=== PATIENT | male | born 1955 | race Caucasian/White ===

== ENCOUNTER 2017-07-23 11:04 | Emergency (ER) | payer MEDICARE, MEDICAID | END 2017-07-23 14:43 | disposition home or self-care (01) | LOC: ERS 11:04 | DX: Z43.6 Encounter for attention to other artificial openings of urinary tract (principal); I10 Essential (primary) hypertension; D64.9 Anemia, unspecified; Z79.899 Other long term (current) drug therapy; Z79.4 Long term (current) use of insulin | CPT/HCPCS: 99284 ==

== ENCOUNTER 2017-07-31 11:33 | Outpatient (CLI) | payer MEDICARE, OTHER ==
--- NOTE | 2017-08-03 12:29 | RAD ---
MODIFIED BARIUM SWALLOW WITH SPEECH THERAPIST: HISTORY: A 62-year-old male with dysphagia with feeding difficulty. FINDINGS: The patient was evaluated in the upright and lateral positions with multiple consistencies. There was severe oral dysphagia with a delayed swallowing reflex. Considerable tongue pumping with f ree spilling of the bolus of all textures into the pharynx with crystal aspiration with numerous consis tencies. Please see speech therapy report for additional findings and recommendations. POS: [facility]
== END 2017-07-31 11:34 | disposition home or self-care (01) ==
PROVIDERS: ATTEND Family Medicine
DX: R13.10 Dysphagia, unspecified (principal); R63.3 Feeding difficulties
CPT/HCPCS: 74230

== ENCOUNTER 2017-08-31 09:49 | Inpatient (IN) | payer MEDICARE, MEDICAID ==
[2017-08-31] MEDS ORDERED: Acetaminophen 1,000 MG in Premix Bag 1 BAG IVPB ONE (10:15)
[2017-08-31] MEDS ORDERED: Piperacillin/Tazobactam 4.5 GM in Sodium Chloride 0.9% 100 ML IVPB ONE (10:15)
[2017-08-31 10:24] LABS: Bilirubin Negative (Negative); Blood, Urine Moderate (Negative); Clarity TURBID (Clear); Glucose, Urine (Dipstick) Negative (Negative); Leukocyte Large (Negative); Nitrite Negative (Negative); Protein, Urine (Dipstick) 300 mg/dL (Neg-Trace); Specific Gravity, Urine 1.023 (1.002-1.036); pH, Urine 8.5 (5.0-9.0)
[2017-08-31 10:28] LABS: Bacteria/HPF 4+ HPF (None Seen)
[2017-08-31 10:30] LABS: Pathc Cast-AUWi Flag 6.39 (0-2.49); Yeast-AUWi Flag 107.7 (0-25.0)
[2017-08-31 10:40] LABS: Hemoglobin 12.3 g/dL (14.0-18.0); Mean Corpuscular HGB CONC 32.5 g/dL (32.0-36.0); Mean Corpuscular Hemoglobin 31.6 pg (27.0-31.0); Mean Corpuscular Volume 97.3 fl (80.0-94.0); Mean Platelet Volume 12.3 fL (7.4-10.4); Platelet Count 103 thou/uL (130-400); RBC Distribution Width 12.6 % (11.5-14.5); Red Blood Cell (RBC) Count 3.91 mill/uL (4.70-6.10); White Blood Cell (WBC) Count 7.7 thou/uL (4.8-10.8)
[2017-08-31 10:47] LABS: Crystals/HPF 3+ TRIPLE PHOS HPF (Negative); Yeast-All Forms None Seen HPF (None Seen)
[2017-08-31 10:48] LABS: Hyaline Casts/LPF NONE SEEN LPF (0-3 Hyaline); Other Casts/LPF None Seen LPF (0-3 Hyaline)
[2017-08-31 10:49] LABS: ALT (SGPT) 19 U/L (8-55); AST (SGOT) 19 U/L (5-34); Albumin 2.8 g/dL (3.4-4.8); Alkaline Phosphatase 93 U/L (40-150); Anion Gap 13 mmol/L (10-20); BUN (Urea Nitrogen) 35 mg/dL (8.4-25.7); Bilirubin, Total 0.3 mg/dL (0.2-1.2); Calc. Creatinine Clearance 0 mL/min (70-130); Calcium 8.6 mg/dL (7.8-10.44); Carbon Dioxide 23 mmol/L (23-31); Chloride 103 mmol/L (98-107); Estimated GFR-MDRD 83; Globulin 3.7 g/dL (2.4-3.5); Glucose 201 mg/dL (80-115); Potassium 4.9 mmol/L (3.5-5.1); Protein, Total 6.5 g/dL (5.8-8.1); Sodium 134 mmol/L (136-145)
--- NOTE | 2017-08-31 11:08 | RAD ---
PORTABLE CHEST 1 VIEW: DATE: 08/31/17. TIME: 10:11 a.m. HISTORY: Sepsis, fever, leaking of the PEG tube, leaking of green fluid from site of nephrostomy. FINDINGS/IMPRESSION: The heart is enlarged. There is bilateral perihilar edema versus infiltrates. No pneumothoraces or large effusions are seen. POS: C
[2017-08-31 11:27] LABS: Lymphocytes 17 % (21-51); MDiff Complete? YES; Monocytes 17 % (0-10); Neutrophil 64 % (42-75); PLT Morphology Comment Appears Decreased; Polychromasia SLIGHT = 2-3 cells (100X) (0-2/hpf); Reactive Lymphocytes 1 % (0-10)
[2017-08-31] MEDS: Sodium Chloride 0.9% 1,000 ML IV SCH (15:00)
[2017-08-31] MEDS ORDERED: Fleet Enema 133 ML BOT PR PRN (15:10)
[2017-08-31] MEDS ORDERED: Chloraseptic Spray 180 ml Bottle PO PRN (15:10)
[2017-08-31] MEDS ORDERED: Artificial Tears 18 DROP/0.9 ML EA EYE PRN (15:10)
[2017-08-31] MEDS ORDERED: Bisacodyl 10 MG SUPP PR PRN (15:10)
[2017-08-31] MEDS ORDERED: Mag-Al 1200 mg/1200 mg/30 ML UDCUP PER TUBE PRN (15:10)
[2017-08-31] MEDS ORDERED: HumaLOG 300 UNITS/3 ML VIAL SC PRN (15:10)
[2017-08-31] MEDS ORDERED: Dextrose 5% in Water 1,000 ML IV PRN (15:10)
[2017-08-31] MEDS ORDERED: Sodium Chloride 0.65% Nasal 44 ML BOT EA NARE PRN (15:10)
[2017-08-31] MEDS ORDERED: Eucerin (Mineral Oil/Petrolatum,White) 30 gm Jar TOP PRN (15:10)
[2017-08-31] MEDS ORDERED: Diabetic Tussin 200 MG/10 ML UDCUP PER TUBE PRN (15:10)
[2017-08-31] MEDS ORDERED: VANCOMYCIN PO PRN (15:10)
[2017-08-31] MEDS ORDERED: hydrALAZINE 20 MG/ML VIAL SLOW IVP PRN (15:10)
[2017-08-31] MEDS ORDERED: Acetaminophen 650 MG/20.3 ML UDCUP PER TUBE PRN (15:10)
[2017-08-31] MEDS ORDERED: Ondansetron HCl/PF 4 MG/2 ML Vial IVP PRN (15:10)
[2017-08-31] MEDS ORDERED: Dextrose 50% Abboject 50 ML SYRINGE SLOW IVP PRN (15:10)
[2017-08-31] MEDS ORDERED: Acetaminophen 650 MG Suppository PR PRN (15:10)
[2017-08-31] MEDS ORDERED: Ondansetron ODT 4 MG TAB PER TUBE PRN (15:10)
--- NOTE | 2017-08-31 15:50 | HP ---
PRIMARY CARE PHYSICIAN: Dr. Cheryl Navas. REASON FOR ADMISSION: Sent from [facility] in [place] for fever. HISTORY OF PRESENT ILLNESS: A 62-year-old male, who lives at [facility]. He has a PEG tube and chronic indwelling Huffman catheter. Over there at [facility], his fever was 102.7 and there was problem with his PEG tube with leaking surrounding PEG tube as well as his urine was draining cloudy urine and that is why they sent him to emergency room for evaluation. This patient is nonverbal. He has a previous history of stroke and he has hemiplegia and contracture. He has PEG tube in place and he has Huffman catheter in place. He is not able to provide any history, so history is very limited. As per [facility] report, they gave him medication this morning, but they found rate around PEG tube site and he was appeared more tachypneic and weak than usual and that is why they sent him to the ER today. When he presented to the ER, he was tachypneic, but he was afebrile. He was having profuse diaphoreses. The routine blood test in the emergency room showed thrombocytopenia with urinalysis suggestive of urinary tract infection and chest x-ray also suspected for bilateral perihilar infiltration. REVIEW OF SYSTEMS: All review of systems tried to review with the patient, but unable to review at this point because patient is not able to provide any history or not participating with the history and he cannot communicate well. 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 PAST SURGICAL HISTORY: History of suprapubic catheter placement and then removed. Currently, patient has Huffman catheter and PEG tube placement. PAST PSYCHIATRIC HISTORY: Major depressive disorder. SOCIAL HISTORY: Patient lives at [facility]. No history of tobacco, alcohol or illicit drug abuse. Patient's sister, Anais, is the medical power of state's attorney. FAMILY HISTORY: No strong family history of premature coronary artery disease, stroke or cancer. EMERGENCY ROOM COURSE: Patient has received Ofirmev 1 gram, vancomycin 1 gram, Zosyn 4.5 gram, and IV fluid. ALLERGIES: TETRACYCLINE. CURRENT HOME MEDICATIONS: Apidra subcu as per sliding scale, Coreg 3.125 mg per tube twice daily, Lantus subcu daily, oxcarbazepine 150 mg per tube twice daily, Protonix 40 mg per tube daily, and potassium chloride 30 mL per tube daily. PHYSICAL EXAMINATION: VITAL SIGNS: Currently, blood pressure 127/55, pulse 73, respiratory rate 32, temperature 98.6, saturation 96% on 4 liter oxygen. Weight 72.5 kilograms. GENERAL: The patient is currently sick, chronically ill, febrile, and tachypneic. HEENT: Head is normocephalic, atraumatic. Eyes: Pupils round, reactive to light. Extraocular muscles intact. ENT: Oropharynx within normal limits. No oral thrush noted. No pharyngeal erythema, no exudate. NECK: Supple, no JVD, no thyromegaly, no carotid bruit. LUNGS: Bilateral coarse breath sounds, but no obvious rales or rhonchi heard. CARDIAC: S1 and S2 regular without any significant murmur elicited. ABDOMEN: PEG tube in place. The patient does have surrounding erythema and maceration around PEG tube site, but I could not elicit any drainage at this point. The patient does have old healed suprapubic catheter incision. GENITALIA: The patient does have a Huffman catheter in place, draining cloudy urine. BACK: No CVA tenderness. EXTREMITIES: Upper extremity passive movement of all joints are normal with contracture on the left side. Lower extremity passive movement is unremarkable , but patient does have contracture on the left side. NEUROLOGIC: Unable to do a complete neurological examination. Patient is not cooperative. Patient has aphasia, dysphagia, and residual weakness and contracture from previous stroke. SKIN: Patient does have petechiae as well as bruits on his lower extremity as well as upper extremity. HEMATOLOGICAL: No lymph nodes. PSYCHIATRIC: Flat affect. SIGNIFICANT LABORATORY DATA: 1. Chest x-ray based on my review, bilateral perihilar edema versus infiltrate. 2. Urinalysis suggestive of urinary tract infection. BMP: Sodium 134, potassium 4.9, chloride 103, carbon dioxide 23, anion gap 13, BUN 35, creatinine 0.92, glucose 201, calcium 8.6, lactic acid 1.1. 3. LFT: AST 19, ALT 19, alkaline phosphatase 93, albumin 2.8. CBC: WBC 7.7, hemoglobin 12.3, platelet 103, and MCV 97.3. 4. EKG and scrap burner showing sinus rhythm. ASSESSMENT AND PLAN: 1. Sepsis with acute organ dysfunction. This patient has sepsis and source of infection is urinary tract infection as well as pneumonia. He is hypoxic and tachypneic. He has hypoxic respiratory failure. He is clinically appeared dehydrated. At this point, the patient will be closely monitored on the telemetry floor. We will continue with slow IV fluid and continue with broad spectrum antibiotic therapy with vancomycin and Zosyn. We will follow up on blood and urine culture result. His influenza screen is negative. 2. Bilateral hilar pneumonia. This patient is tachypneic, most likely related with his pneumonia. We will continue with vancomycin and Zosyn. He is at aspiration risk, so we will treat as aspiration pneumonia as well as healthcare associated pneumonia given the patient lives in [place] and his pneumonia is associated with hypoxia. 3. Urinary tract infection related with chronic indwelling Huffman catheter. We will continue with broad spectrum antibiotic with vancomycin and Zosyn and we will follow up on culture result. 4. Macrocytosis with anemia. We will continue with folic acid, vitamin B12 via PEG tube daily. 5. Thrombocytopenia. We will monitor platelet count. We are starting DVT prophylaxis, but if platelet count drops then we will discontinue heparin product. 6. Dehydration. Patient will be given gentle IV fluid NS at 75 mL per hour. 7. PEG tube malfunction. As per [facility], PEG tube was draining, we will closely monitor, we are going to start tube feeding and if it starts draining any material, then we will hold tube feeding and consult GI for PEG tube adjustment. At this point, patient will need PEG tube site care with antifungal cream and topical cream. 8. Diabetes type 2. We will continue with insulin as per sliding scale per protocol and we will resume Levemir based on his Accu-Cheks. 9. Hypertension. At this point, the patient's blood pressure is reasonably marginal, so we will closely monitor on telemetry floor. If blood pressure goes high, then we will resume a Coreg. 10. Gastroesophageal reflux disease. We will continue Pepcid 20 mg IV b.i.d. and Protonix per tube daily. 11. Anxiety and depression. We will continue venlafaxine, which he is taking at [facility]. 12. Seizure disorder. Patient is taking oxcarbazepine, which we will continue for seizure while in the hospital. 13. Deep venous thrombosis prophylaxis. Lovenox 40 mg subcutaneously daily. 14. Gastrointestinal prophylaxis. Pepcid 20 mg IV b.i.d. 15. Code status. I spoke with the patient's medical power of state's attorney, Bennie Clifton on phone [phone] and she confirmed a full code status and she also gave me permission to talk to Carson, his brother, who lives near [facility]. Disposition plan based on clinical course. We are expecting patient's stay in hospital more than 2 midnights, and plan of care discussed with the patient and his sister on the phone. TATIANNA
[2017-08-31] MEDS: Piperacillin/Tazobactam 4.5 GM in Sodium Chloride 0.9% 100 ML IVPB SCH (18:08)
[2017-08-31] MEDS: HumaLOG 300 UNITS/3 ML VIAL SC PRN (18:08)
[2017-08-31 18:52] LABS: Legionella Urinary Ag Negative (Negative); Strep pneumo Urine Ag NEGATIVE (NEGATIVE)
[2017-08-31 20:27] VITALS: BMI 22.9
[2017-08-31] MEDS: Famotidine/PF 20 mg/2ml Vial SLOW IVP SCH (22:27)
[2017-08-31] MEDS: Insulin Detemir 100 UNITS/ML 10 UNITS in Pre-Filled Syringe 1 EACH SC SCH (22:28)
[2017-08-31] MEDS: OXcarbazepine 150 MG TAB PER TUBE SCH (22:28)
[2017-08-31] MEDS: Vancomycin HCl 1 GM in Premix Bag 1 BAG IVPB SCH (22:28)
[2017-09-01] MEDS: Piperacillin/Tazobactam 4.5 GM in Sodium Chloride 0.9% 100 ML IVPB SCH ×4 (00:15→19:31)
[2017-09-01 05:29] LABS: ALT (SGPT) 19 U/L (8-55); AST (SGOT) 16 U/L (5-34); Albumin 2.5 g/dL (3.4-4.8); Alkaline Phosphatase 89 U/L (40-150); Anion Gap 12 mmol/L (10-20); BUN (Urea Nitrogen) 32 mg/dL (8.4-25.7); Bilirubin, Total 0.3 mg/dL (0.2-1.2); Calc. Creatinine Clearance 88 mL/min (70-130); Calcium 8.5 mg/dL (7.8-10.44); Carbon Dioxide 21 mmol/L (23-31); Chloride 107 mmol/L (98-107); Estimated GFR-MDRD 87; Globulin 3.6 g/dL (2.4-3.5); Glucose 323 mg/dL (80-115); Potassium 4.9 mmol/L (3.5-5.1); Protein, Total 6.1 g/dL (5.8-8.1); Sodium 135 mmol/L (136-145)
[2017-09-01] MEDS: Sodium Chloride 0.9% 1,000 ML IV SCH ×2 (06:24→22:05)
[2017-09-01 06:45] LABS: Band 3 % (5-11); Hemoglobin 12.3 g/dL (14.0-18.0); Hypochromia SLIGHT = 6-15 cells (100X) (0-5/hpf); Lymphocytes 11 % (21-51); MDiff Complete? YES; Macrocytosis SLIGHT = 6-15 cells (100X) (0-5/hpf); Mean Corpuscular HGB CONC 31.6 g/dL (32.0-36.0); Mean Corpuscular Hemoglobin 31.2 pg (27.0-31.0); Mean Corpuscular Volume 98.8 fl (80.0-94.0); Mean Platelet Volume 12.8 fL (7.4-10.4); Monocytes 2 % (0-10); Neutrophil 84 % (42-75); PLT Morphology Comment Appears Decreased; Platelet Count 94 thou/uL (130-400); RBC Distribution Width 12.7 % (11.5-14.5); Red Blood Cell (RBC) Count 3.96 mill/uL (4.70-6.10); White Blood Cell (WBC) Count 4.5 thou/uL (4.8-10.8)
[2017-09-01] MEDS ORDERED: Enoxaparin Sodium 40 MG/0.4 ML SYRINGE SC SCH (09:00)
[2017-09-01] MEDS: Insulin Detemir 100 UNITS/ML 10 UNITS in Pre-Filled Syringe 1 EACH SC SCH ×2 (09:30→22:05)
[2017-09-01] MEDS: Famotidine/PF 20 mg/2ml Vial SLOW IVP SCH ×2 (09:30→22:04)
[2017-09-01] MEDS: Folic Acid 1 MG TAB PER TUBE SCH (09:30)
[2017-09-01] MEDS: Cyanocobalamin (Vitamin B-12) 1,000 MCG TAB PER TUBE SCH (09:30)
[2017-09-01] MEDS: OXcarbazepine 150 MG TAB PER TUBE SCH ×2 (09:31→22:06)
[2017-09-01] MEDS: Pantoprazole 40 MG GRANULES PACKET PER TUBE SCH (09:31)
[2017-09-01] MEDS: Vancomycin HCl 1 GM in Premix Bag 1 BAG IVPB SCH ×2 (09:47→22:05)
[2017-09-01] MEDS ORDERED: Nystatin Powder 15 GM BOT TOP PRN (10:24)
--- NOTE | 2017-09-01 11:36 | PDOC.PN ---
- Subjective Encounter Start Date: 09/01/17 Encounter Start Time: 08:00 -: non-verbal, old records requested/rev Patient seen and examined. No overnight events - Objective Resuscitation Status: Resuscitation Status FULL:Full Resuscitation MAR Reviewed: Yes Vital Signs & Weight: Vital Signs (12 hours) Temp Pulse Resp BP Pulse Ox 09/01/17 08:05 98.5 F 78 22 H 180/70 H 98 09/01/17 07:12 97 09/01/17 07:11 79 16 97 09/01/17 04:30 99 09/01/17 04:02 95 09/01/17 04:00 98.7 F 67 16 159/70 H 99 09/01/17 00:15 98 09/01/17 00:00 97.8 F 74 18 132/64 98 08/31/17 23:57 69 22 H 97 Weight Admit Weight 159 lb 13.362 oz Weight 159 lb 13.362 oz I&O: 08/31/17 09/01/17 09/02/17 06:59 06:59 06:59 Intake Total 1861 Output Total 1300 Balance 561 Result Diagrams: 09/01/17 04:42 09/01/17 04:42 Additional Labs: Accuchecks 09/01/17 08/31/17 08/31/17 06:10 20:24 17:26 POC Glucose 280 H 225 H 207 H 08/31/17 15:29 POC Glucose 192 H EKG Reviewed by me: Yes (nsr) Phys Exam - Physical Examination Constitutional: NAD HEENT: PERRLA, moist MMs, sclera anicteric Neck: no JVD, supple, full ROM Respiratory: no wheezing, no rales, no rhonchi Cardiovascular: RRR, no significant murmur, no rub Gastrointestinal: soft, no distention, positive bowel sounds PEG tube+ Musculoskeletal: no edema, pulses present residual weakness, contracture, aphasia Lymphatic: no nodes Psychiatric: normal affect Skin: no rash, normal turgor Dx/Plan (1) Dehydration Code(s): E86.0 - DEHYDRATION Status: Acute (2) Healthcare associated bacterial pneumonia Code(s): J15.9 - UNSPECIFIED BACTERIAL PNEUMONIA Status: Acute (3) PEG tube malfunction Code(s): K94.23 - GASTROSTOMY MALFUNCTION Status: Acute (4) Sepsis with acute organ dysfunction Code(s): A41.9 - SEPSIS, UNSPECIFIED ORGANISM; R65.20 - SEVERE SEPSIS WITHOUT SEPTIC SHOCK Status: Acute (5) Thrombocytopenia Code(s): D69.6 - THROMBOCYTOPENIA, UNSPECIFIED Status: Acute (6) UTI (urinary tract infection) due to urinary indwelling catheter Code(s): T83.511A - I/I REACT D/T INDWELLING URETHRAL CATHETER, INIT; N39.0 - URINARY TRACT INFECTION, SITE NOT SPECIFIED Status: Acute (7) Anxiety and depression Code(s): F41.8 - OTHER SPECIFIED ANXIETY DISORDERS Status: Chronic (8) Diabetes type 2, controlled Code(s): E11.9 - TYPE 2 DIABETES MELLITUS WITHOUT COMPLICATIONS Status: Chronic (9) GERD (gastroesophageal reflux disease) Code(s): K21.9 - GASTRO-ESOPHAGEAL REFLUX DISEASE WITHOUT ESOPHAGITIS Status: Chronic (10) H/O: CVA (cerebrovascular accident) Code(s): Z86.73 - PRSNL HX OF TIA (TIA), AND CEREB INFRC W/O RESID DEFICITS Status: Chronic (11) Hypertension Code(s): I10 - ESSENTIAL (PRIMARY) HYPERTENSION Status: Chronic (12) Macrocytic anemia Code(s): D53.9 - NUTRITIONAL ANEMIA, UNSPECIFIED Status: Chronic (13) Seizure disorder Code(s): G40.909 - EPILEPSY, UNSP, NOT INTRACTABLE, WITHOUT STATUS EPILEPTICUS Status: Chronic - Plan cont current plan of care, continue antibiotics * continue vancomycin and zosyn * continue tube feeding * wound care * supportive care * medication reviewed as below * symptomatic treatment * medically stable with current treatment * DC tele * transfer to medical * follow culture. * DC heparin for low platelet * palliative care consult Review of Systems - Review of Systems Other: unable to review as pt is non verbal - Medications/Allergies Allergies/Adverse Reactions: Allergies Allergy/AdvReac Type Severity Reaction Status Date / Time tetracycline Allergy Verified 08/31/17 10:12 Medications: Current Medications Acetaminophen (Tylenol) 650 mg [place] Q4H PRN PRN Reason: Headache/Fever or Pain Acetaminophen (Tylenol Elixir) 650 mg PER TUBE Q4H PRN PRN Reason: Headache/Fever or Mild Pain Al Hydroxide/Mg Hydroxide (Maalox) 15 ml PER TUBE Q4H PRN PRN Reason: Heartburn or Indigestion Albuterol/Ipratropium (Duoneb) 3 ml NEB [id number] [facility] Last Admin: 09/01/17 07:11 Dose: 3 ml Albuterol/Ipratropium (Duoneb) 3 ml NEB [id number] PRN PRN Reason: SOB &/or Wheezing Artificial Tears (Tears Naturale) 0 drop EA EYE PRN PRN PRN Reason: Dry Eyes Bisacodyl (Dulcolax) 10 mg MS Q24H PRN PRN Reason: Constipation Cyanocobalamin (Vitamin B-12) 1,000 mcg PER TUBE DAILY [facility] Last Admin: 09/01/17 09:30 Dose: 1,000 mcg Dextrose/Water (Dextrose 50%) 25 gm SLOW IVP PRN PRN PRN Reason: Hypoglycemia Famotidine (Pepcid) 20 mg SLOW IVP Q12HR [facility] Last Admin: 09/01/17 09:30 Dose: 20 mg Folic Acid (Folvite) 1 mg PER TUBE DAILY [facility] Last Admin: 09/01/17 09:30 Dose: 1 mg Glucagon (Glucagon) 1 mg IM PRN PRN PRN Reason: Hypoglycemia Guaifenesin (Robitussin Sf) 200 mg PER TUBE Q4H PRN PRN Reason: Cough Hydralazine HCl (Apresoline) 10 mg SLOW IVP Q4H PRN PRN Reason: Systolic BP > 180 Piperacillin Sod/Tazobactam (Sod 4.5 gm/ Sodium Chloride) 100 mls @ 200 mls/hr IVPB Q6HR [facility] Last Admin: 09/01/17 06:23 Dose: 100 mls Dextrose/Water (D5w) 1,000 mls @ 0 mls/hr IV .Q0M PRN; As Directed PRN Reason: Hypoglycemia Sodium Chloride (Normal Saline 0.9%) 1,000 mls @ 70 mls/hr IV .[id number] [facility] Last Admin: 09/01/17 06:24 Dose: 1,000 mls Insulin Detemir 10 units/ (Miscellaneous Medication) 0.1 mls @ 0 mls/hr SC HS [facility] Last Admin: 08/31/17 22:28 Dose: 0.1 mls Insulin Detemir 10 units/ (Miscellaneous Medication) 0.1 mls @ 0 mls/hr SC QAM [facility] Last Admin: 09/01/17 09:30 Dose: 0.1 mls Vancomycin HCl 1 gm/ Device 200 mls @ 200 mls/hr IVPB 1000,2200 [facility] Last Admin: 09/01/17 09:47 Dose: 200 mls Insulin Human Lispro (Humalog) 0 units SC .MODERATE SLIDING SC PRN PRN Reason: Moderate Correctional Scale Last Admin: 08/31/17 18:08 Dose: 4 units Insulin Human Lispro (Humalog) 0 units SC .BEDTIME SLIDING SC PRN PRN Reason: Bedtime Correctional Scale Methylprednisolone Sodium Succinate (Solu-Medrol) 20 mg IVP Q8H [facility] Last Admin: 09/01/17 09:30 Dose: 20 mg Mineral Oil/White Petrolatum (Eucerin Cream) 0 gm TOP BIDPRN PRN PRN Reason: Dry Skin Miscellaneous Medication (Pharmacy To Dose) 1 each PO PRN PRN PRN Reason: Pharmacy to dose Nystatin (Mycostatin Powder) 1 gm TOP BIDPRN PRN PRN Reason: Topical Irritations Ondansetron HCl (Zofran) 4 mg IVP Q6H PRN PRN Reason: Nausea/Vomiting Ondansetron HCl (Zofran Odt) 4 mg PER TUBE Q6H PRN PRN Reason: Nausea/Vomiting Oxcarbazepine (Trileptal) 150 mg PER TUBE BID [facility] Last Admin: 09/01/17 09:31 Dose: 150 mg Pantoprazole Sodium (Protonix) 40 mg PER TUBE DAILY [facility] Last Admin: 09/01/17 09:31 Dose: 40 mg Phenol (Chloraseptic [place] 180 Ml Bot) 0 ml PO PRN PRN PRN Reason: Sore Throat Sodium Chloride ([place] Nasal [place] 0.65%) 0 ml EA NARE QIDPRN PRN PRN Reason: Nasal Congestion
[2017-09-01] MEDS: HumaLOG 300 UNITS/3 ML VIAL SC PRN ×2 (12:03→18:14)
[2017-09-01 22:14] LABS: Vancomycin, Trough 18.6 ug/mL
[2017-09-02] MEDS: Piperacillin/Tazobactam 4.5 GM in Sodium Chloride 0.9% 100 ML IVPB SCH ×4 (00:57→18:10)
[2017-09-02 05:51] LABS: #Lymphocytes 0.4 thou/uL (1.20-3.40); #Monocytes 0.5 thou/uL (0.11-0.59); #Neutrophils 6.4 thou/uL (1.40-6.50); %Eosinophils 0.1 % (0.0-10.0); %Lymphocytes 5.8 % (21.0-51.0); %Monocytes 6.7 % (0.0-10.0); %Neutrophils 87.4 % (42.0-75.0); Hemoglobin 11.6 g/dL (14.0-18.0); Mean Corpuscular HGB CONC 32.2 g/dL (32.0-36.0); Mean Corpuscular Hemoglobin 31.7 pg (27.0-31.0); Mean Corpuscular Volume 98.4 fl (80.0-94.0); Mean Platelet Volume 12.3 fL (7.4-10.4); Platelet Count 113 thou/uL (130-400); RBC Distribution Width 12.8 % (11.5-14.5); Red Blood Cell (RBC) Count 3.66 mill/uL (4.70-6.10); White Blood Cell (WBC) Count 7.4 thou/uL (4.8-10.8)
[2017-09-02] MEDS: HumaLOG 300 UNITS/3 ML VIAL SC PRN ×2 (05:59→12:48)
[2017-09-02 06:17] LABS: ALT (SGPT) 21 U/L (8-55); AST (SGOT) 18 U/L (5-34); Albumin 2.8 g/dL (3.4-4.8); Alkaline Phosphatase 78 U/L (40-150); Anion Gap 11 mmol/L (10-20); BUN (Urea Nitrogen) 29 mg/dL (8.4-25.7); Bilirubin, Total 0.3 mg/dL (0.2-1.2); Calc. Creatinine Clearance 102 mL/min (70-130); Calcium 8.7 mg/dL (7.8-10.44); Carbon Dioxide 24 mmol/L (23-31); Chloride 109 mmol/L (98-107); Estimated GFR-MDRD Greater than 90; Globulin 3.4 g/dL (2.4-3.5); Glucose 205 mg/dL (80-115); Potassium 4.3 mmol/L (3.5-5.1); Protein, Total 6.2 g/dL (5.8-8.1); Sodium 140 mmol/L (136-145)
--- NOTE | 2017-09-02 08:44 | RAD ---
PORTABLE CHEST: History: Pneumonia. Comparison: 08-31-17 FINDINGS/IMPRESSION: Cardiomegaly again noted. There is vascular congestion. Perihilar interstitial prominence is less pro nounced today. Findings suggest interstitial and early alveolar edema pattern on the prior study whic h is improved. There is some confluent opacity in the left lung base seen through the cardiac silhoue tte which could represent streaky atelectasis or infiltrate. POS: [facility]
[2017-09-02] MEDS: Pantoprazole 40 MG GRANULES PACKET PER TUBE SCH (08:51)
[2017-09-02] MEDS: Folic Acid 1 MG TAB PER TUBE SCH (08:51)
[2017-09-02] MEDS: Cyanocobalamin (Vitamin B-12) 1,000 MCG TAB PER TUBE SCH (08:51)
[2017-09-02] MEDS: Insulin Detemir 100 UNITS/ML 10 UNITS in Pre-Filled Syringe 1 EACH SC SCH ×2 (08:51→19:55)
[2017-09-02] MEDS: Famotidine/PF 20 mg/2ml Vial SLOW IVP SCH ×2 (08:52→19:55)
[2017-09-02] MEDS: OXcarbazepine 150 MG TAB PER TUBE SCH ×2 (08:53→19:55)
[2017-09-02] MEDS: Vancomycin HCl 1 GM in Premix Bag 1 BAG IVPB SCH ×2 (08:53→22:03)
[2017-09-02] MEDS ORDERED: Furosemide 40 MG/4 ML VIAL SLOW IVP SCH (09:00)
--- NOTE | 2017-09-02 11:49 | PDOC.PN ---
- Subjective Encounter Start Date: 09/02/17 Encounter Start Time: 07:10 today pt is more coherent, able to talk few words, feels better, no dyspnea - Objective Resuscitation Status: Resuscitation Status DNR:Do Not Resuscitate MAR Reviewed: Yes Vital Signs & Weight: Vital Signs (12 hours) Temp Pulse Resp BP Pulse Ox 09/02/17 11:38 75 16 95 09/02/17 08:00 98.4 F 75 16 162/72 H 95 09/02/17 06:42 77 18 97 09/02/17 04:29 96 09/02/17 04:00 98.0 F 77 20 166/68 H 97 09/02/17 01:53 96 09/02/17 01:52 96 Weight Admit Weight 159 lb 13.362 oz Weight 159 lb 13.362 oz I&O: 09/01/17 09/02/17 09/03/17 06:59 06:59 06:59 Intake Total 1861 2830 Output Total 1300 2005 Balance 561 825 Result Diagrams: 09/02/17 04:37 09/02/17 04:37 Additional Labs: Accuchecks 09/02/17 09/01/17 09/01/17 05:46 20:20 16:25 POC Glucose 201 H 224 H 192 H 09/01/17 11:58 POC Glucose 301 H Radiology Reviewed by me: Yes (chest xray) Phys Exam - Physical Examination Constitutional: NAD HEENT: PERRLA, moist MMs, sclera anicteric Neck: no JVD, supple Respiratory: no wheezing, no rales, no rhonchi reduced air entry, coarse sound Cardiovascular: RRR, no significant murmur, no rub Gastrointestinal: soft, no distention, positive bowel sounds PEG+ Musculoskeletal: no edema, pulses present Cortes+ left side contracture Lymphatic: no nodes Psychiatric: normal affect Skin: no rash, normal turgor Dx/Plan (1) Dehydration Code(s): E86.0 - DEHYDRATION Status: Resolved (2) Healthcare associated bacterial pneumonia Code(s): J15.9 - UNSPECIFIED BACTERIAL PNEUMONIA Status: Acute (3) PEG tube malfunction Code(s): K94.23 - GASTROSTOMY MALFUNCTION Status: Acute (4) Sepsis with acute organ dysfunction Code(s): A41.9 - SEPSIS, UNSPECIFIED ORGANISM; R65.20 - SEVERE SEPSIS WITHOUT SEPTIC SHOCK Status: Acute (5) Thrombocytopenia Code(s): D69.6 - THROMBOCYTOPENIA, UNSPECIFIED Status: Acute (6) UTI (urinary tract infection) due to urinary indwelling catheter Code(s): T83.511A - I/I REACT D/T INDWELLING URETHRAL CATHETER, INIT; N39.0 - URINARY TRACT INFECTION, SITE NOT SPECIFIED Status: Acute Qualifiers: Indwelling urinary catheter type: indwelling urethral catheter (7) Anxiety and depression Code(s): F41.8 - OTHER SPECIFIED ANXIETY DISORDERS Status: Chronic (8) Diabetes type 2, controlled Code(s): E11.9 - TYPE 2 DIABETES MELLITUS WITHOUT COMPLICATIONS Status: Chronic (9) GERD (gastroesophageal reflux disease) Code(s): K21.9 - GASTRO-ESOPHAGEAL REFLUX DISEASE WITHOUT ESOPHAGITIS Status: Chronic (10) H/O: CVA (cerebrovascular accident) Code(s): Z86.73 - PRSNL HX OF TIA (TIA), AND CEREB INFRC W/O RESID DEFICITS Status: Chronic (11) Hypertension Code(s): I10 - ESSENTIAL (PRIMARY) HYPERTENSION Status: Chronic (12) Macrocytic anemia Code(s): D53.9 - NUTRITIONAL ANEMIA, UNSPECIFIED Status: Chronic (13) Seizure disorder Code(s): G40.909 - EPILEPSY, UNSP, NOT INTRACTABLE, WITHOUT STATUS EPILEPTICUS Status: Chronic - Plan cont current plan of care, cortes catheter, continue antibiotics, respiratory therapy * today will DC IVF * will give one dose of lasix * continue IV antibiotics as per below * medication reviewed as below * symptomatic treatment * code status confirmed DNR * supportive care * expecting discharge in 24-48 hours * follow culture. Review of Systems - Review of Systems ENT: negative: Ear Pain, Ear Discharge, Nose Pain, Nose Discharge, Nose Congestion, Mouth Pain, Mouth Swelling, Throat Pain, Throat Swelling, Other Respiratory: negative: Cough, Dry, Shortness of Breath, Hemoptysis, SOB with Excertion, Pleuritic Pain, Sputum, Wheezing Cardiovascular: negative: chest pain, palpitations, orthopnea, paroxysmal nocturnal dyspnea, edema, light headedness, other Gastrointestinal: negative: Nausea, Vomiting, Abdominal Pain, Diarrhea, Constipation, Melena, Hematochezia, Other Genitourinary: negative: Dysuria, Frequency, Incontinence, Hematuria, Retention , Other Musculoskeletal: negative: Neck Pain, Shoulder Pain, Arm Pain, Back Pain, Hand Pain, Leg Pain, Foot Pain, Other Other: not reliable ROS - Medications/Allergies Allergies/Adverse Reactions: Allergies Allergy/AdvReac Type Severity Reaction Status Date / Time tetracycline Allergy Verified 08/31/17 10:12 Medications: Current Medications Acetaminophen (Tylenol) 650 mg [place] Q4H PRN PRN Reason: Headache/Fever or Pain Acetaminophen (Tylenol Elixir) 650 mg PER TUBE Q4H PRN PRN Reason: Headache/Fever or Mild Pain Al Hydroxide/Mg Hydroxide (Maalox) 15 ml PER TUBE Q4H PRN PRN Reason: Heartburn or Indigestion Albuterol/Ipratropium (Duoneb) 3 ml NEB [id number] REPLACED BY [facility] Last Admin: 09/02/17 11:38 Dose: 3 ml Albuterol/Ipratropium (Duoneb) 3 ml NEB [id number] PRN PRN Reason: SOB &/or Wheezing Artificial Tears (Tears Naturale) 0 drop EA EYE PRN PRN PRN Reason: Dry Eyes Bisacodyl (Dulcolax) 10 mg [place] Q24H PRN PRN Reason: Constipation Cyanocobalamin (Vitamin B-12) 1,000 mcg PER TUBE DAILY REPLACED BY [facility] Last Admin: 09/02/17 08:51 Dose: 1,000 mcg Dextrose/Water (Dextrose 50%) 25 gm SLOW IVP PRN PRN PRN Reason: Hypoglycemia Famotidine (Pepcid) 20 mg SLOW IVP Q12HR REPLACED BY [facility] Last Admin: 09/02/17 08:52 Dose: 20 mg Folic Acid (Folvite) 1 mg PER TUBE DAILY REPLACED BY [facility] Last Admin: 09/02/17 08:51 Dose: 1 mg Furosemide (Lasix) 40 mg SLOW IVP NOW REPLACED BY [facility] Stop: 09/02/17 12:00 Glucagon (Glucagon) 1 mg IM PRN PRN PRN Reason: Hypoglycemia Guaifenesin (Robitussin Sf) 200 mg PER TUBE Q4H PRN PRN Reason: Cough Hydralazine HCl (Apresoline) 10 mg SLOW IVP Q4H PRN PRN Reason: Systolic BP > 180 Last Admin: 09/01/17 17:28 Dose: 10 mg Piperacillin Sod/Tazobactam (Sod 4.5 gm/ Sodium Chloride) 100 mls @ 200 mls/hr IVPB Q6HR REPLACED BY [facility] Last Admin: 09/02/17 05:50 Dose: 100 mls Dextrose/Water (D5w) 1,000 mls @ 0 mls/hr IV .Q0M PRN; As Directed PRN Reason: Hypoglycemia Insulin Detemir 10 units/ (Miscellaneous Medication) 0.1 mls @ 0 mls/hr SC HS REPLACED BY [facility] Last Admin: 09/01/17 22:05 Dose: 0.1 mls Insulin Detemir 10 units/ (Miscellaneous Medication) 0.1 mls @ 0 mls/hr SC QAM REPLACED BY [facility] Last Admin: 09/02/17 08:51 Dose: 0.1 mls Vancomycin HCl 1 gm/ Device 200 mls @ 200 mls/hr IVPB 1000,2200 REPLACED BY [facility] Last Admin: 09/02/17 08:53 Dose: 200 mls Insulin Human Lispro (Humalog) 0 units SC .MODERATE SLIDING SC PRN PRN Reason: Moderate Correctional Scale Last Admin: 09/02/17 05:59 Dose: 4 units Insulin Human Lispro (Humalog) 0 units SC .BEDTIME SLIDING SC PRN PRN Reason: Bedtime Correctional Scale Mineral Oil/White Petrolatum (Eucerin Cream) 0 gm TOP BIDPRN PRN PRN Reason: Dry Skin Miscellaneous Medication (Pharmacy To Dose) 1 each PO PRN PRN PRN Reason: Pharmacy to dose Nystatin (Mycostatin Powder) 1 gm TOP BIDPRN PRN PRN Reason: Topical Irritations Ondansetron HCl (Zofran) 4 mg IVP Q6H PRN PRN Reason: Nausea/Vomiting Ondansetron HCl (Zofran Odt) 4 mg PER TUBE Q6H PRN PRN Reason: Nausea/Vomiting Oxcarbazepine (Trileptal) 150 mg PER TUBE BID REPLACED BY [facility] Last Admin: 09/02/17 08:53 Dose: 150 mg Pantoprazole Sodium (Protonix) 40 mg PER TUBE DAILY REPLACED BY [facility] Last Admin: 09/02/17 08:51 Dose: 40 mg Phenol (Chloraseptic [place] 180 Ml Bot) 0 ml PO PRN PRN PRN Reason: Sore Throat Sodium Chloride ([place] Nasal [place] 0.65%) 0 ml EA NARE QIDPRN PRN PRN Reason: Nasal Congestion
--- NOTE | 2017-09-02 12:43 | PQF ---
PETER SETHI SALIM NOORJIBHAI MD [id number] [facility]-259 [id number] CLINICAL DOCUMENTATION IMPROVEMENT CLARIFICATION FORM: ICD-10 Updated PLEASE DO AN ADDENDUM TO THE PROGRESS NOTE WITH ANY DOCUMENTATION UPDATES OR ADDITIONS AND CARRY THROUGH TO DC SUMMARY. THANK YOU. DATE: 09-02-17 ATTN: DR. NO Please exercise your independent, professional judgment in responding to the clarification form. 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 All Rights Reserved Agnieszka Bernard RN, BS [email or web address] Cell [facility]
--- NOTE | 2017-09-02 12:48 | PQF ---
PETER SETHI SALIM NOORJIBHAI MD [id number] CLINICAL DOCUMENTATION IMPROVEMENT CLARIFICATION FORM: ICD-10 Updated PLEASE DO AN ADDENDUM TO THE PROGRESS NOTE WITH ANY DOCUMENTATION UPDATES OR ADDITIONS AND CARRY THROUGH TO DC SUMMARY. THANK YOU. DATE: 09-02-17 ATTN: DR. NO Please exercise your independent, professional judgment in responding to the clarification form. Clinical indicators are provided on the bottom of this form for your review Please check appropriate box(s): ___x____ I (concur) with the Wound Care findings as stated below. [ ] Pressure Ulcer: (Stage I: Erythema; Stage II: Partial thickness; Stage III : Full thickness; Stage IV: Necrosis to muscle/bone) [ ] Location: POA: [ ] Yes [ ] No[ ] Unable to determine Stage (I to IV): (Left Right Bilateral____ _ N/A ) [ ] Location: POA: [ ] Yes [ ] No[ ] Unable to determine Stage (I to IV): (Left Right Bilateral____ _ N/A ) [ ] Location: POA: [ ] Yes [ ] No[ ] Unable to determine Stage (I to IV): (Left Right Bilateral___ __ N/A ) [ ] No pressure ulcer diagnosis [ ] Deep tissue injury [ ] Other diagnosis [ ] Unable to determine For continuity of documentation, please document condition throughout progress notes and discharge summary. Thank You. CLINICAL INDICATORS - SIGNS / SYMPTOMS / LABS WOUNDCARE CONSULT: LEFT MEDIAL BACK PU STAGE 2 LEFT LATERAL BACK PU STAGE 2 RISK FACTORS: H&P: HX CVA W/ RESIDUAL HEMIPLEGIA ON LEFT SIDE TREATMENTS: NURSING ASSESSMENT: TURN Q 2H WOUNDCARE CONSULT: LEFT MEDIAL BACK PU STAGE 2 LEFT LATERAL BACK PU STAGE 2 THANK YOU, AGNIESZKA (This form is maintained as a part of the permanent medical record) 2014 [employer]. All Rights Reserved Agnieszka Bernard RN, BS [email or web address] Cell [facility]
--- NOTE | 2017-09-02 13:06 | PQF ---
[employer] Applications Specialist [employer] PETER Spann VANESSA NO MD [id number] O-[id number] CLINICAL DOCUMENTATION IMPROVEMENT CLARIFICATION FORM: ICD-10 Updated PLEASE DO AN ADDENDUM TO THE PROGRESS NOTE WITH ANY DOCUMENTATION UPDATES OR ADDITIONS AND CARRY THROUGH TO DC SUMMARY. THANK YOU. DATE: 09-02-17 ATTN: DR. NO Please exercise your independent, professional judgment in responding to the clarification form. Clinical indicators are provided on the bottom of this form for your review Please check appropriate box(s): [ x ] Aspiration Pneumonia [ ] Empirically treating Gram Negative Pneumonia [ ] Empirically treating Anaerobic Pneumonia [ ] Simple Pneumonia (community acquired - nosocomial) [ ] Pneumonia of unknown etiology [ ] Other diagnosis [ ] Unable to determine For continuity of documentation, please document condition throughout progress notes and discharge summary. Thank You. CLINICAL INDICATORS - SIGNS / SYMPTOMS / LABS H&P: BILATERAL HILAR PNA AT RISK FOR ASPIRATION - WILL TREAT ASPIRATION PNA [facility] PNA 08-31 CXR: BILATERAL PERIHILAR EDEMA VS INFILTRATES RISK FACTORS H&P: LIVES IN RESIDENTIAL HX CVA PEG TUBE - CURRENTLY LEAKING FOR OROPHARYNGEAL DYSPHAGIA LEFT HEMIPLEGIA AND CONTRACTURES TREATMENTS: ER: VANCOMYCIN IV ZOSYN CPOE - MAR: VANCOMYCIN IV 08-31 / 09-01 / 09-02 ZOSYN 08-31 THANK YOU, AGNIESZKA (This form is maintained as a part of the permanent medical record) 2015 [employer]. All Rights Reserved Agnieszka Bernard RN, BS [email or web address] [facility]
[2017-09-03] MEDS: Piperacillin/Tazobactam 4.5 GM in Sodium Chloride 0.9% 100 ML IVPB SCH ×3 (00:25→11:44)
[2017-09-03] MEDS: Cyanocobalamin (Vitamin B-12) 1,000 MCG TAB PER TUBE SCH (07:33)
[2017-09-03] MEDS: Folic Acid 1 MG TAB PER TUBE SCH (07:33)
[2017-09-03] MEDS: Pantoprazole 40 MG GRANULES PACKET PER TUBE SCH (07:34)
[2017-09-03] MEDS: Famotidine/PF 20 mg/2ml Vial SLOW IVP SCH (07:34)
[2017-09-03] MEDS: OXcarbazepine 150 MG TAB PER TUBE SCH (07:34)
[2017-09-03] MEDS: Vancomycin HCl 1 GM in Premix Bag 1 BAG IVPB SCH (08:57)
--- NOTE | 2017-09-03 11:23 | DIS ---
DATE OF ADMISSION: 08/31/2017 DATE OF DISCHARGE: 09/03/2017 PRIMARY CARE PHYSICIAN: Dr. Cheryl Navas. DISCHARGE DISPOSITION: longterm home. PRIMARY DISCHARGE DIAGNOSES: 1. Acute aspiration pneumonia. 2. PEG tube malfunction, resolved. 3. Sepsis with acute organ dysfunction. 4. Thrombocytopenia. 5. Urinary tract infection due to urinary indwelling Huffman catheter. 6. Dehydration, resolved. SECONDARY DISCHARGE DIAGNOSES: Seizure disorder, macrocytic anemia, hypertension, history of cerebro vascular accident, gastroesophageal reflux disease, diabetes type 2, anxiety and depression. PRIMARY PROCEDURE/OPERATION: None. RADIOLOGICAL INVESTIGATION: Chest x-ray showed hilar infiltration. Repeat chest x-ray showed simila r infiltration. SIGNIFICANT LABS: WBC 7.4, hemoglobin 11.6, platelet 113. Sodium 140, potassium 4.3, chloride 109, carbon dioxide 24, anion gap 11, BUN 29, creatinine 0.77, glucose 205, calcium 8.7, AST 18, ALT 21, a lkaline phosphatase 78, albumin 2.8. Urinalysis is consistent with urinary tract infection. Urine l egionella and pneumococcal antigen negative. Urine Streptococcal pneumoniae antigen negative. Urine culture grew Proteus mirabilis and Klebsiella, Enterobacter and Enterococcus. Blood culture negativ e. Influenza screen negative. DISCHARGE MEDICATIONS: Tylenol 1000 mg per tube q.6 hourly p.r.n., Augmentin 875 mg per tube twice d aily for 7 days, Dulcolax 10 mg per rectum daily p.r.n., Coreg 6.25 mg per tube b.i.d., vitamin D3 50 00 unit per tube every week, vitamin B12 1000 mcg per tube daily, Colace 100 mg per tube b.i.d., foli c acid 1 mg per tube daily, Artificial Tears t.i.d., Lantus 20 units subQ at bedtime, Apidra as per s liding scale, miconazole powder topical application b.i.d. p.r.n., Trileptal 150 mg per tube b.i.d., Protonix 40 mg per tube daily, MiraLax 17 grams per tube daily, potassium chloride 40 mEq per tube da esmer, Florastor 250 mg per tube daily for 7 days, venlafaxine 37.5 mg per tube b.i.d. CONTRAINDICATIONS: None. CODE STATUS: DNR. This was discussed during this admission. INPATIENT CONSULTANTS: None. ALLERGIES: TETRACYCLINE. DISCHARGE PLAN: Post hospital, the patient is discharged to assisted home and primary care ph ysician will follow up with the patient over there. HOSPITAL COURSE: A 62-year-old male who was admitted by me. Please see my HPI for further details. The patient lives at snf where he was having fever and he was having drainage around PEG tu be as well as cloudy urine. This patient has chronic indwelling Huffman catheter. He has previous his tory of CVA as well as left-sided hemiplegia and contracture. He has PEG tube in place and a Huffman c atheter in place. This patient was not able to provide any history, but he was having fever and that is why he was sent to the emergency room for further evaluation. He lives at the [facility]. This patient was tachypneic. He was afebrile. In the emergency room, he was having diffuse diaphore sis. He was meeting sepsis criteria with acute organ dysfunction. He was admitted to the telemetry floor where we treated him with broad spectrum antibiotic therapy. Upon stabilization, we transferre d him to medical floor. While in hospital, he remained afebrile. His urine culture growing polymicr obial organism, which we are suspecting from contamination versus colonization. He had repeat chest x-ray, which also showed stable finding. He has multiple decubitus ulcers and skin lesion on admissi on, which was present on the day of admission. Please see wound care team note for detailed. At this point, the patient is doing very well. He does not have any further PEG tube drainage and th at drainage was related with surrounding skin infection, but it was not related with PEG tube malfunc tion. This patient now antibiotic therapy and we are changing to Augmentin and levofloxacin for anot her 7 days. Rest of medication was continued while in hospital as well as on discharge. The patient is seen and examined at bedside today. REVIEW OF SYSTEMS: Negative. Today, patient is more alert and able to note yes or no to questions. PHYSICAL EXAMINATION: VITAL SIGNS: Currently, temperature 98.3, pulse 76, respiratory rate 24, saturation 97%, and blood p ressure 142/65. Weight 159 pounds. GENERAL: The patient is currently alert, awake, up to his baseline level. No acute distress. HEAD: Normocephalic, atraumatic. LUNGS: Clear to auscultation without any rhonchi or rales. CARDIAC: S1, S2 regular without any murmur. ABDOMEN: PEG tube in place surrounding mild maceration with erythema noted, but no drainage. GENITALIA: Huffman catheter in place and draining clear urine. The patient does have left-sided contr acture in upper and lower extremities from previous stroke. Paperwork for discharge done. Discharge medication reconciliation done. Total time spent on discharge day more than 30 minutes.
[2017-09-03 11:30] VITALS: BP 167/72; TEMP 98.6
[2017-09-03] MEDS: Insulin Detemir 100 UNITS/ML 10 UNITS in Pre-Filled Syringe 1 EACH SC SCH (11:49)
--- NOTE | 2017-09-03 12:20 | PDOC.PN ---
- Subjective Encounter Start Date: 09/03/17 Encounter Start Time: 10:45 Patient seen and examined. No new complaints. No overnight events - Objective Resuscitation Status: Resuscitation Status DNR:Do Not Resuscitate MAR Reviewed: Yes Vital Signs & Weight: Vital Signs (12 hours) Temp Pulse Resp BP Pulse Ox 09/03/17 11:29 98.6 F 73 18 167/72 H 94 L 09/03/17 08:00 97.4 F L 78 16 09/03/17 07:19 97.4 F L 78 16 169/75 H 98 09/03/17 06:19 76 16 96 09/03/17 05:46 98.6 F 75 22 H 168/80 H 96 09/03/17 03:44 97 09/03/17 01:42 75 16 95 Weight Admit Weight 159 lb 13.362 oz Weight 159 lb 13.362 oz I&O: 09/02/17 09/03/17 09/04/17 06:59 06:59 06:59 Intake Total 2830 1210 Output Total 2004 5500 Balance 825 -4290 Result Diagrams: 09/02/17 04:37 09/02/17 04:37 Additional Labs: Accuchecks 09/03/17 09/02/17 09/02/17 11:29 20:10 16:50 POC Glucose 147 H 113 H 121 H Phys Exam - Physical Examination Constitutional: NAD HEENT: PERRLA, moist MMs, sclera anicteric Neck: no JVD, supple Respiratory: no wheezing, no rales, no rhonchi Cardiovascular: RRR, no significant murmur, no rub Gastrointestinal: soft, non-tender, no distention, positive bowel sounds peg+ contacture left side weakness Psychiatric: normal affect Skin: no rash, normal turgor Dx/Plan (1) Dehydration Code(s): E86.0 - DEHYDRATION Status: Resolved (2) Healthcare associated bacterial pneumonia Code(s): J15.9 - UNSPECIFIED BACTERIAL PNEUMONIA Status: Acute (3) PEG tube malfunction Code(s): K94.23 - GASTROSTOMY MALFUNCTION Status: Acute (4) Sepsis with acute organ dysfunction Code(s): A41.9 - SEPSIS, UNSPECIFIED ORGANISM; R65.20 - SEVERE SEPSIS WITHOUT SEPTIC SHOCK Status: Acute (5) Thrombocytopenia Code(s): D69.6 - THROMBOCYTOPENIA, UNSPECIFIED Status: Acute (6) UTI (urinary tract infection) due to urinary indwelling catheter Code(s): T83.511A - I/I REACT D/T INDWELLING URETHRAL CATHETER, INIT; N39.0 - URINARY TRACT INFECTION, SITE NOT SPECIFIED Status: Acute Qualifiers: Indwelling urinary catheter type: indwelling urethral catheter (7) Anxiety and depression Code(s): F41.8 - OTHER SPECIFIED ANXIETY DISORDERS Status: Chronic (8) Diabetes type 2, controlled Code(s): E11.9 - TYPE 2 DIABETES MELLITUS WITHOUT COMPLICATIONS Status: Chronic (9) GERD (gastroesophageal reflux disease) Code(s): K21.9 - GASTRO-ESOPHAGEAL REFLUX DISEASE WITHOUT ESOPHAGITIS Status: Chronic (10) H/O: CVA (cerebrovascular accident) Code(s): Z86.73 - PRSNL HX OF TIA (TIA), AND CEREB INFRC W/O RESID DEFICITS Status: Chronic (11) Hypertension Code(s): I10 - ESSENTIAL (PRIMARY) HYPERTENSION Status: Chronic (12) Macrocytic anemia Code(s): D53.9 - NUTRITIONAL ANEMIA, UNSPECIFIED Status: Chronic (13) Seizure disorder Code(s): G40.909 - EPILEPSY, UNSP, NOT INTRACTABLE, WITHOUT STATUS EPILEPTICUS Status: Chronic - Plan cont current plan of care, continue antibiotics, outreach and education social worker * medication reviewed as below * symptomatic treatment * see discharge summery * medically stable for discharge.. Review of Systems - Review of Systems ENT: negative: Ear Pain, Ear Discharge, Nose Pain, Nose Discharge, Nose Congestion, Mouth Pain, Mouth Swelling, Throat Pain, Throat Swelling, Other Respiratory: negative: Cough, Dry, Shortness of Breath, Hemoptysis, SOB with Excertion, Pleuritic Pain, Sputum, Wheezing Cardiovascular: negative: chest pain, palpitations, orthopnea, paroxysmal nocturnal dyspnea, edema, light headedness, other Gastrointestinal: negative: Nausea, Vomiting, Abdominal Pain, Diarrhea, Constipation, Melena, Hematochezia, Other Genitourinary: negative: Dysuria, Frequency, Incontinence, Hematuria, Retention , Other Musculoskeletal: negative: Neck Pain, Shoulder Pain, Arm Pain, Back Pain, Hand Pain, Leg Pain, Foot Pain, Other - Medications/Allergies Allergies/Adverse Reactions: Allergies Allergy/AdvReac Type Severity Reaction Status Date / Time tetracycline Allergy Verified 08/31/17 10:12 Medications: Current Medications Acetaminophen (Tylenol) 650 mg [place] Q4H PRN PRN Reason: Headache/Fever or Pain Acetaminophen (Tylenol Elixir) 650 mg PER TUBE Q4H PRN PRN Reason: Headache/Fever or Mild Pain Al Hydroxide/Mg Hydroxide (Maalox) 15 ml PER TUBE Q4H PRN PRN Reason: Heartburn or Indigestion Albuterol/Ipratropium (Duoneb) 3 ml NEB [id number] [facility] Last Admin: 09/03/17 11:14 Dose: Not Given Albuterol/Ipratropium (Duoneb) 3 ml NEB [id number] PRN PRN Reason: SOB &/or Wheezing Artificial Tears (Tears Naturale) 0 drop EA EYE PRN PRN PRN Reason: Dry Eyes Bisacodyl (Dulcolax) 10 mg AZ Q24H PRN PRN Reason: Constipation Cyanocobalamin (Vitamin B-12) 1,000 mcg PER TUBE DAILY [facility] Last Admin: 09/03/17 07:33 Dose: 1,000 mcg Dextrose/Water (Dextrose 50%) 25 gm SLOW IVP PRN PRN PRN Reason: Hypoglycemia Famotidine (Pepcid) 20 mg SLOW IVP Q12HR [facility] Last Admin: 09/03/17 07:34 Dose: 20 mg Folic Acid (Folvite) 1 mg PER TUBE DAILY [facility] Last Admin: 09/03/17 07:33 Dose: 1 mg Glucagon (Glucagon) 1 mg IM PRN PRN PRN Reason: Hypoglycemia Guaifenesin (Robitussin Sf) 200 mg PER TUBE Q4H PRN PRN Reason: Cough Hydralazine HCl (Apresoline) 10 mg SLOW IVP Q4H PRN PRN Reason: Systolic BP > 180 Last Admin: 09/01/17 17:28 Dose: 10 mg Piperacillin Sod/Tazobactam (Sod 4.5 gm/ Sodium Chloride) 100 mls @ 200 mls/hr IVPB Q6HR [facility] Last Admin: 09/03/17 11:44 Dose: Not Given Dextrose/Water (D5w) 1,000 mls @ 0 mls/hr IV .Q0M PRN; As Directed PRN Reason: Hypoglycemia Insulin Detemir 10 units/ (Miscellaneous Medication) 0.1 mls @ 0 mls/hr SC HS [facility] Last Admin: 09/02/17 19:55 Dose: 0.1 mls Insulin Detemir 10 units/ (Miscellaneous Medication) 0.1 mls @ 0 mls/hr SC QAM [facility] Last Admin: 09/03/17 11:49 Dose: Not Given Vancomycin HCl 1 gm/ Device 200 mls @ 200 mls/hr IVPB 1000,2200 [facility] Last Admin: 09/03/17 08:57 Dose: 200 mls Insulin Human Lispro (Humalog) 0 units SC .MODERATE SLIDING SC PRN PRN Reason: Moderate Correctional Scale Last Admin: 09/02/17 12:48 Dose: 2 units Insulin Human Lispro (Humalog) 0 units SC .BEDTIME SLIDING SC PRN PRN Reason: Bedtime Correctional Scale Mineral Oil/White Petrolatum (Eucerin Cream) 0 gm TOP BIDPRN PRN PRN Reason: Dry Skin Miscellaneous Medication (Pharmacy To Dose) 1 each PO PRN PRN PRN Reason: Pharmacy to dose Nystatin (Mycostatin Powder) 1 gm TOP BIDPRN PRN PRN Reason: Topical Irritations Ondansetron HCl (Zofran) 4 mg IVP Q6H PRN PRN Reason: Nausea/Vomiting Ondansetron HCl (Zofran Odt) 4 mg PER TUBE Q6H PRN PRN Reason: Nausea/Vomiting Oxcarbazepine (Trileptal) 150 mg PER TUBE BID [facility] Last Admin: 09/03/17 07:34 Dose: 150 mg Pantoprazole Sodium (Protonix) 40 mg PER TUBE DAILY [facility] Last Admin: 09/03/17 07:34 Dose: 40 mg Phenol (Chloraseptic [place] 180 Ml Bot) 0 ml PO PRN PRN PRN Reason: Sore Throat Sodium Chloride ([place] Nasal [place] 0.65%) 0 ml EA NARE QIDPRN PRN PRN Reason: Nasal Congestion
== END 2017-09-03 13:15 | DRG 698 ==
LOC: ERS 09:49 → 2NO 12:41 → T4-A 09-01 19:23
PROVIDERS: ADMIT Internal Medicine; ATTEND Internal Medicine
DX: T83.511A Infection and inflammatory reaction due to indwelling urethral catheter, initial encounter (principal); A41.9 Sepsis, unspecified organism; R65.20 Severe sepsis without septic shock; J69.0 Pneumonitis due to inhalation of food and vomit; L89.102 Pressure ulcer of unspecified part of back, stage 2; R53.2 Functional quadriplegia; K94.23 Gastrostomy malfunction; I69.354 Hemiplegia and hemiparesis following cerebral infarction affecting left non-dominant side; D69.6 Thrombocytopenia, unspecified; R13.12 Dysphagia, oropharyngeal phase; E86.0 Dehydration; N39.0 Urinary tract infection, site not specified; Y84.6 Urinary catheterization as the cause of abnormal reaction of the patient, or of later complication, without mention of misadventure at the time of the procedure; Z66 Do not resuscitate; I10 Essential (primary) hypertension; E11.9 Type 2 diabetes mellitus without complications; D53.9 Nutritional anemia, unspecified; Y83.3 Surgical operation with formation of external stoma as the cause of abnormal reaction of the patient, or of later complication, without mention of misadventure at the time of the procedure; I69.391 Dysphagia following cerebral infarction; I69.320 Aphasia following cerebral infarction; K21.9 Gastro-esophageal reflux disease without esophagitis; G40.909 Epilepsy, unspecified, not intractable, without status epilepticus; M24.50 Contracture, unspecified joint; F41.8 Other specified anxiety disorders
CPT/HCPCS: 36415; 36416; 71010; 80053; 80202; 81003; 81015; 83605; 85025; 87040; 87077; 87086; 87804; 87899; 94640; 94760; 96365; 96367; 96375; J0131; J0360; J1650; J1815; J1940; J2543; J2920; J3370; J7050; J7620; S0028

== ENCOUNTER 2017-10-22 12:57 | Emergency (ER) | payer MEDICARE, MEDICAID ==
--- NOTE | 2017-10-22 15:18 | CT ---
ABDOMEN AND PELVIC CT SCAN WITHOUT IV CONTRAST: HISTORY: A 62-year-old male with a history of prior right nephrostomy tube malfunction, blood-tinged urine in the Huffman catheter, history of kidney stones. There is cardiomegaly. There are small bilateral pleural effusions and minimal pleural-based parench ymal changes, probably chronic. A very small amount of pericardial fluid. At least 1 gallstones not ed in a nondistended gallbladder. The liver, pancreas, spleen, and adrenal glands are unremarkable a s evaluated without IV contrast. There are several nonobstructing right renal calculi with some dila tation of the right upper renal collecting system and ureter without significant acute distention, ho omari. There is a right posterior flank tract, evidence for a prior percutaneous nephrostomy cathete r which is no longer present. Percutaneous gastrostomy tube in place. Multiple bladder calculi. Ma rked solid fecal material in a very markedly dilated rectum. There appear to be bilateral pars defec ts at L5-S1. Normal-appearing appendix. No bowel obstruction, abscess, adenopathy, or abnormal flui d collection within the abdomen or pelvis. IMPRESSION: Mild dilatation of the right upper renal collecting system and right ureter without acute distention. Nonobstructing right renal calculi. Residual right posterolateral flank tract, evidence for a prio r percutaneous nephrostomy catheter which is no longer present. Multiple bladder calculi. Normal-ap pearing appendix. Cholelithiasis without gallbladder distention. Small bilateral pleural effusions with minimal pericardial fluid and mild lower lung zone linear stranding. Other findings as above. POS: [facility]
[2017-10-22 16:10] LABS: Anion Gap 12 mmol/L (10-20); BUN (Urea Nitrogen) 21 mg/dL (8.4-25.7); Calc. Creatinine Clearance 0 mL/min (70-130); Carbon Dioxide 25 mmol/L (23-31); Chloride 106 mmol/L (98-107); Estimated GFR-MDRD Greater than 90; Glucose 134 mg/dL (80-115); Potassium 4.8 mmol/L (3.5-5.1); Sodium 138 mmol/L (136-145)
== END 2017-10-22 18:55 ==
LOC: ERS 12:57
DX: N99.528 Other complication of incontinent external stoma of urinary tract (principal); I69.354 Hemiplegia and hemiparesis following cerebral infarction affecting left non-dominant side; I10 Essential (primary) hypertension; E11.9 Type 2 diabetes mellitus without complications
CPT/HCPCS: 36415; 51702; 74176; 80048

== ENCOUNTER 2017-11-24 22:20 | Inpatient (IN) | payer MEDICARE, MEDICAID ==
[2017-11-24] MEDS ORDERED: Nitroglycerin 0.4 MG TAB (25 Tab Bottle) ONE (22:30)
[2017-11-24 22:46] LABS: Actual Bicarbonate (HCO3a) 20.1 mEq/L (22-26); Base Excess (BEa) -1.3 mEq/L (0 (+/-) 2.5); CO2 Tension 26.5 mmHg (35.0-45.0); Hematocrit-ABG 51.9 % (42.0-52.0); Hemoglobin (Hb) 16.3 g/dL (14.0-18.0); O2 Tension (PaO2) 79.9 mmHg (80.0-100.0)
[2017-11-24 22:47] LABS: Analyzer IN Cardio ER; Calcium, Ionized 1.2 mmol/L (1.12-1.30); Puncture Site RRA
[2017-11-24 22:48] LABS: ALV-art Gradient 594.975 (0-20)
--- NOTE | 2017-11-24 22:51 | RAD ---
PORTABLE CHEST: 11/24/17 HISTORY: Dyspnea. COMPARISON: . Cardiomegaly. The lung lemon are well aerated and clear. No infiltrate or vascular congestion seen. IMPRESSION: Cardiomegaly. No acute lung process identified. POS: [facility]
[2017-11-24 22:53] LABS: INR-International Normal Ratio 1.2; PTT 26.4 SEC (22.9-36.1); Prothrombin Time 15.5 SEC (12.0-14.7)
[2017-11-24 22:57] LABS: Bilirubin Small (Negative); Blood, Urine Negative (Negative); Clarity TURBID (Clear); Glucose, Urine (Dipstick) 100 mg/dL (Negative); Leukocyte Large (Negative); Nitrite Negative (Negative); Protein, Urine (Dipstick) > or equal to 300 mg/dL (Neg-Trace); Specific Gravity, Urine 1.021 (1.002-1.036); Urobilinogen 0.2 mg/dL (0.2-1.0); pH, Urine 8.5 (5.0-9.0)
[2017-11-24 22:58] LABS: Bacteria/HPF 4+ HPF (None Seen); WBC/HPF 21-50 HPF (0-3)
[2017-11-24 22:59] LABS: Pathc Cast-AUWi Flag 18.51 (0-2.49); Yeast-AUWi Flag 147.4 (0-25.0)
[2017-11-24] MEDS ORDERED: Calcium Gluc 4.6 MEQ/10 ML (100 MG/ML) ONE (23:01)
[2017-11-24 23:07] LABS: RBC/HPF 0-3 HPF (0-3)
[2017-11-24 23:08] LABS: ALT (SGPT) 14 U/L (8-55); AST (SGOT) 25 U/L (5-34); Alkaline Phosphatase 134 U/L (40-150); Anion Gap 21 mmol/L (10-20); BUN (Urea Nitrogen) 38 mg/dL (8.4-25.7); Bilirubin, Total 0.9 mg/dL (0.2-1.2); CK (CPK) 153 U/L (30-200); Calc. Creatinine Clearance 0 mL/min (70-130); Calcium 10.3 mg/dL (7.8-10.44); Carbon Dioxide 20 mmol/L (23-31); Chloride 110 mmol/L (98-107); Estimated GFR-MDRD 67; Globulin 4.2 g/dL (2.4-3.5); Glucose 242 mg/dL (80-115); Magnesium 2.2 mg/dL (1.6-2.6); Potassium 5.2 mmol/L (3.5-5.1); Protein, Total 8.2 g/dL (5.8-8.1); Sodium 146 mmol/L (136-145)
[2017-11-24 23:08] LABS: Crystals/HPF 3+ TRIPLE PHOS HPF (Negative); Hyaline Casts/LPF 0-3 HYALINE CAST LPF (0-3 Hyaline)
[2017-11-24] MEDS ORDERED: Acetaminophen 325 MG Suppository ONE (23:09)
[2017-11-24] MEDS ORDERED: Acetaminophen 650 MG Suppository ONE (23:09)
[2017-11-24 23:12] LABS: CKMB 3.3 ng/mL (0-6.6)
[2017-11-24 23:13] LABS: Band 1 % (5-11); Hemoglobin 17.9 g/dL (14.0-18.0); Lymphocytes 5 % (21-51); MDiff Complete? YES; Mean Corpuscular HGB CONC 32.5 g/dL (32.0-36.0); Mean Corpuscular Hemoglobin 32.4 pg (27.0-31.0); Mean Corpuscular Volume 99.8 fl (80.0-94.0); Mean Platelet Volume 11.1 fL (7.4-10.4); Monocytes 5 % (0-10); Neutrophil 89 % (42-75); PLT Morphology Comment Appears Adequate; Platelet Count 206 thou/uL (130-400); RBC Distribution Width 15.2 % (11.5-14.5); Red Blood Cell (RBC) Count 5.51 mill/uL (4.70-6.10); White Blood Cell (WBC) Count 27.6 thou/uL (4.8-10.8)
[2017-11-24] MEDS ORDERED: Piperacillin/Tazobactam 4.5 GM in Sodium Chloride 0.9% 100 ML IVPB SCH (23:15)
[2017-11-24] MEDS ORDERED: Vancomycin HCl 1.25 GM in Sodium Chloride 0.9% 250 ML 250 ML IVPB SCH (23:15)
[2017-11-24 23:30] LABS: Troponin I 0.514 ng/mL (< 0.028)
[2017-11-25] MEDS ORDERED: Dextrose 5% in Water 1,000 ML IV PRN (00:49)
[2017-11-25] MEDS ORDERED: Dextrose 50% Abboject 50 ML SYRINGE SLOW IVP PRN (00:49)
[2017-11-25] MEDS ORDERED: HumaLOG 300 UNITS/3 ML VIAL SC PRN (00:49)
[2017-11-25] MEDS ORDERED: VANCOMYCIN/ ZOSYN IVPB PRN (01:06)
[2017-11-25] MEDS ORDERED: Ondansetron HCl/PF 4 MG/2 ML Vial IVP PRN (01:32)
[2017-11-25] MEDS ORDERED: Ondansetron ODT 4 MG TAB SL PRN (01:32)
[2017-11-25 02:30] VITALS: BMI 22.1
[2017-11-25 02:31] VITALS: BP 157/86
[2017-11-25 02:47] LABS: Lactic Acid 3.6 mmol/L (0.5-2.2)
[2017-11-25 02:48] LABS: Troponin I 2.061 ng/mL (< 0.028)
[2017-11-25] MEDS ORDERED: Enoxaparin Sodium 80 MG/0.8 ML SYRINGE SC SCH ×2 (03:00→21:00)
--- NOTE | 2017-11-25 03:17 | HP ---
PRESENTING COMPLAINT: Respiratory distress. 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 According to the EMS, the patient has been alert and oriented, but was found to be saturating at 88% upon arrival. He was placed on CPAP with improvement of his saturations to 94%. His blood pressure was elevated. He denied nausea, vomiting, or diarrhea. However, there was reported history of fevers. At the emergency room, he was febrile with temperature of 102 degrees Fahrenheit. He was tachycardic as well and had leukocytosis. His labs showed hyperkalemia with potassium of 5.2, BUN of 38, creatinine of 1.11, glucose was 242, lactic acid was 3.1. Troponin was 0.517 and BNP was 2600. TSH was 1.1016. WBC showed leukocytosis of 27,000. INR was 1.2. Blood gas showed pH of 7.5 with pCO2 of 26.5 and pO2 of 79.9 on BiPAP. Urinalysis showed large number of leukocyte esterase, increased wbc's with bacteria. EKG showed nonspecific T wave changes. Dr. Reynaga of Cardiology was called by ER physician, but STEMI code was not called, recommendation was to trend troponin and treat for as NSTEMI if uptrending. Elevated troponin not might be due to demand ischemia from his sepsis. Chest x-ray revealed cardiomegaly with no acute lung process identified. The patient was started on IV fluids. He received 1 liter of normal saline. Blood cultures were taken and he was started on broad spectrum antibiotics (vancomycin, Zosyn, and levofloxacin) for sepsis with unclear etiology, likely urinary source infection versus pulmonary as he has respiratory distress. PAST MEDICAL HISTORY: As stated in the HPI. PAST SURGICAL HISTORY: History of PEG tube placement. FAMILY HISTORY: Reviewed and noncontributory. SOCIAL HISTORY: He does not smoke cigarettes, drink alcohol, or use illicit drugs. ALLERGIES: TETRACYCLINE. HOME MEDICATIONS: Acetaminophen 1000 mg per G-tube every 6 hours p.r.n., Augmentin 1 tab per tube every 12 hours, Dulcolax 10 mg per rectal daily, carvedilol 6.25 mg per tube b.i.d., cholecalciferol 5000 units q.7 days, cyanocobalamin 1000 mcg daily, docusate 100 mg b.i.d., folic acid 1 mg daily, glucagon 1 mg IM p.r.n., glycerin/propylene glycol 1 drop in each eye t.i.d., insulin glargine 20 units subcutaneous at bedtime, insulin glulisine sliding scale, miconazole topically b.i.d., oxcarbazepine 150 mg b.i.d., pantoprazole 40 mg daily, polyethylene glycol 17 g daily, potassium chloride 40 mEq daily, Saccharomyces boulardii 250 mg daily, and venlafaxine 37.5 mg b.i.d. REVIEW OF SYSTEMS: Unable to obtain as the patient is aphasic. PHYSICAL EXAMINATION: VITAL SIGNS: The patient's blood pressure is 178/98, heart rate 122, oxygen saturation 99% on BiPAP. GENERAL: Not in acute distress, BiPAP in situ. HEENT: Normocephalic, atraumatic. Dry mucous membranes. PERRLA. RESPIRATORY: Tachypneic. Vesicular breath sounds. No wheezes or rales appreciated. CARDIOVASCULAR: Tachycardic with regular rhythm. S1 and S2 only. No murmurs, rubs, or gallops. ABDOMEN: Soft, not tender, not distended. Feeding tube in place. No organomegaly. Bowel sounds positive. MUSCULOSKELETAL: No edema. SKIN: Has some ecchymosis on his bilateral lower extremities. NEUROLOGIC: Unable to cooperate with exam. PSYCHIATRIC: Unable to cooperate with exam. LABORATORY DATA: As stated in the HPI. IMAGING: As stated in the HPI. EKG, sinus tachycardia with nonspecific ST segment changes. ASSESSMENT/PLAN: 1. Acute respiratory failure with hypoxia, unclear etiology, but sepsis is high on the differential. He has been started on 1 liter of IV fluids. We will continue to gently bolus and reassess the patient. Blood cultures have been taken. We will continue on broad spectrum antibiotics for now and consult Infectious Disease. 2. Sepsis as above. His urinalysis was also abnormal and this might be the source of his sepsis. We will follow up on cultures, blood and urine, and continue broad spectrum antibiotics. 3. Diabetes mellitus. We will obtain A1c. We will place on sliding scale insulin, diabetic diet, and hypoglycemia protocol. We will start home regimen once they have been confirmed. 4. Dehydration. The patient looks volume depleted on examination. He is receiving gentle boluses. No reported history of congestive heart failure or BNPs elevated with no reference. He may require Lasix, but will hold off for now. 5. Hypertension. Blood pressure is elevated and the patient is tachycardic. We will resume Coreg. Consults, we will obtain Pulmonary consult as well as Cardiology consult. The patient will be admitted to the intermediate care unit. 6. Elevated troponin. This is likely from demand ischemia, but we will trend troponin and will start anticoagulation if it is trending upwards. 7. Lactic acidosis. We will get a repeat lactic acid level. This might be due to sepsis. This should improve with hydration. CODE STATUS: FULL CODE. MTDD
--- NOTE | 2017-11-25 03:19 | PDOC.EVN ---
Event Note - Event Note Event Note: Patient still tachycardic and now has borderline low BP. Troponin trending up. Has been started on therapeutic Lovenox for NSTEMI pending cardiology review. Also, PE being ruled out with D-Dimer CTPE. Will continue to monitor closely. 0404 HRS: Due to continued tachycardia hypotension and tachypnea, pulmonary service consulted for possible intubation. Several unsuccessful attempts were also made to contact relatives to update them on the changes in clinical status and to clarify resuscitation status.
[2017-11-25 03:46] LABS: Actual Bicarbonate (HCO3a) 17.2 mEq/L (22-26); Base Excess (BEa) -5.3 mEq/L (0 (+/-) 2.5); CO2 Tension 26.8 mmHg (35.0-45.0); Hematocrit-ABG 50.5 % (42.0-52.0); Hemoglobin (Hb) 16.1 g/dL (14.0-18.0); O2 Tension (PaO2) 76.7 mmHg (80.0-100.0); pH, Arterial 7.43 (7.35-7.45)
[2017-11-25 03:47] LABS: Calcium, Ionized 1.2 mmol/L (1.12-1.30); Puncture Site LBR
[2017-11-25] MEDS ORDERED: Norepinephrine 8 MG/250 ML BAG IVPB PRN (04:27)
[2017-11-25] MEDS: Sodium Chloride 0.9% 1,000 ML IV SCH ×2 (05:00→05:30)
[2017-11-25 06:16] LABS: ALT (SGPT) 12 U/L (8-55); AST (SGOT) 32 U/L (5-34); Albumin 3.3 g/dL (3.4-4.8); Alkaline Phosphatase 107 U/L (40-150); Anion Gap 20 mmol/L (10-20); BUN (Urea Nitrogen) 43 mg/dL (8.4-25.7); Calc. Creatinine Clearance 64 mL/min (70-130); Calcium 9.6 mg/dL (7.8-10.44); Carbon Dioxide 17 mmol/L (23-31); Chloride 113 mmol/L (98-107); Estimated GFR-MDRD 60; Globulin 3.5 g/dL (2.4-3.5); Glucose 216 mg/dL (80-115); Potassium 4.7 mmol/L (3.5-5.1); Protein, Total 6.8 g/dL (5.8-8.1); Sodium 145 mmol/L (136-145)
[2017-11-25] MEDS: Piperacillin/Tazobactam 3.375 GM in Sodium Chloride 0.9% 100 ML IVPB SCH ×3 (06:19→18:17)
[2017-11-25] MEDS ORDERED: Sodium Chloride 0.9% 1,000 ML IV SCH (06:45)
--- NOTE | 2017-11-25 06:52 | CON ---
DATE OF CONSULTATION: 11/25/2017 SERVICE: Pulmonary Medicine REASON FOR CONSULTATION: Severe sepsis. HISTORY OF PRESENT ILLNESS: The patient is a 62-year-old white male with past medical history signif icant for debility. He is chronically bedbound. He has a left-sided hemiplegia. On good days, he c an talk to his family with some degree of clarity. On bad days, he has a difficult time getting word s out and is very confused about the situation. For a long period of time, the family has been afrai d that he has had progressive dementia. He has gotten to a place where based on what the patient's s ister is telling me, he does not want to , but he is ready to pass away. We had a long discussion this morning and ultimately she suggested that we should be making the patient a DNI/DNR to prevent additional suffering moving forward. That being said, she would like everything done up to that poin t a short pressors to return him to his previous state. I cannot get any additional elements of the history from the patient, but based on chart review he was sent over here for shortness of breath an d had a fever of 102 in the emergency department. He only got 1 liter of fluid and initially looked better, but he was tucked into the IMCU on CPAP. He decompensated. No additional fluid was given be cause of his elevated BNP and he was subsequently brought to the ICU. I was called to consider him f or intubation, but after discussion with the family, they have decided to pursue aggressive measures to fix him short of anything like chest compressions, intubation, or central lines for blood pressure medications. PAST MEDICAL HISTORY: 1. Type 2 diabetes mellitus. 2. Anemia. 3. Hypertension. 4. Obstructive uropathy, with previous suprapubic catheter placement. 5. Oropharyngeal dysphagia. 6. History of stroke with residual debility and left-sided hemiplegia, and aphasia with contracture on the left. PAST SURGICAL HISTORY: PEG tube placement. FAMILY HISTORY: Noncontributory. SOCIAL HISTORY: Negative for alcohol, tobacco or illicit drug use. ALLERGIES: TETRACYCLINE. MEDICATIONS: A list of his inpatient medications were reviewed. Multiple updates were made at this time. REVIEW OF SYSTEMS: This cannot be obtained because of the patient's current mentation issues. PHYSICAL EXAMINATION: VITAL SIGNS: T-max 102.3, pulse 125, blood pressure 157/86, respirations 57, saturation 100% on a 90 % FiO2. He is on BiPAP and I modified the settings to decrease them to 9/5. HEENT: Normocephalic, atraumatic. Sclerae are white, conjunctivae pink. Oral and nasal mucosa is m oist without lesions. LUNGS: Decent air entry. There is no prolonged expiratory phase. I do not appreciate any wheezing. Rhonchi are present. He does not cough. HEART: Tachycardic. Regular. ABDOMEN: Soft, nontender, nondistended. Bowel sounds are positive. MUSCULOSKELETAL: No cyanosis or clubbing. There is no pitting in the bilateral lower extremities. In fact skin tenting is present throughout. GENITOURINARY: Huffman catheter is in place. NEUROLOGIC: He has a global encephalopathy at this time. That being said, he has got contractures o n the left. LABORATORY DATA: WBC 27.6, hemoglobin 17.9, platelets 206,000. Neutrophils are 89% with 1% bands. INR 1.2, D-dimer 14.77. PH 7.43, pCO2 of 26, pO2 76.7 on 80% FiO2 at that time. Creatinine 1.22, wh ich is gently up trending. BUN 43, bicarbonate 17, anion gap is gently down trending to 20. Sodium has improved to 145. Troponin 2.06. BNP 2600, lactate is going up to 3.6. Liver function studies a re unremarkable. TSH is normal. Urinalysis is significant for white blood cells and leukocyte faisal ase. Nitrites are negative. There is significant proteinuria, and glycosuria. Influenza A and B is unremarkable. Blood cultures are pending. IMAGING: Chest x-ray demonstrates no obvious infiltrate. Cardiomegaly is present. There are no ple ural effusions identified. ASSESSMENT: 1. Acute hypoxic respiratory failure. 2. Severe sepsis. 3. History of stroke with bedbound status. 4. Dementia, possible. PLAN: I talked with the patient's sister. She tells me that both she and her mom share responsibilit ies on making decisions for the patient. They have had multiple conversations about his current cond ition and would prefer for him to be a DNI/DNR moving forward. I have talked about pressors. Right now we are going to hold off on them, but if they can become necessary, she would like for me to call her back and we can have a conversation about whether or not this is indicated. He only got 1 liter of fluid and resuscitation. We will give him 2 additional liters of fluid. I do not believe the BN P because clinically at bedside, the patient is quite dry. We will get an echocardiogram; however. He has already been initiated on therapeutic Lovenox. This may need to be modified if the patient go es on to develop an acute kidney injury. BiPAP has been titrated at bedside and actually discontinue d. Previously, he did not have a significant hypercapnic respiratory failure and primarily had hypox emia. PE is clearly in the differential. We may consider getting either a VQ scan, or a CT PE erika col in 1-2 days, but given his major comorbidities, right it is not going to change anything that we are planning on doing. I will put a palliative care consultation in, and change his code status over to a DNR. Critical care time: 50 minutes.
[2017-11-25 07:18] LABS: Hemoglobin 14.9 g/dL (14.0-18.0); Mean Corpuscular HGB CONC 30.8 g/dL (32.0-36.0); Mean Corpuscular Hemoglobin 31.9 pg (27.0-31.0); RBC Distribution Width 15.3 % (11.5-14.5); Red Blood Cell (RBC) Count 4.68 mill/uL (4.70-6.10); White Blood Cell (WBC) Count 10.1 thou/uL (4.8-10.8)
[2017-11-25 07:24] LABS: Troponin I 5.995 ng/mL (< 0.028)
[2017-11-25] MEDS: Heparin 5,000 UNITS/ML VIAL SC SCH ×3 (07:43→22:18)
[2017-11-25] MEDS ORDERED: Carvedilol 6.25 MG TAB PER TUBE SCH (08:00)
[2017-11-25 08:09] LABS: Band 13 % (5-11); Lymphocytes 5 % (21-51); MDiff Complete? YES; Macrocytosis SLIGHT = 6-15 cells (100X) (0-5/hpf); Mean Platelet Volume 11.8 fL (7.4-10.4); Metamyelocyte 7 % (0-0); Monocytes 9 % (0-10); Myelocyte 1 % (0-0); Neutrophil 65 % (42-75); Platelet Count 115 thou/uL (130-400)
--- NOTE | 2017-11-25 09:21 | RAD ---
SEMIUPRIGHT PORTABLE CHEST 1 VIEW: Date: 11/25/17 HISTORY: 62-year-old male with history of respiratory distress and possible fluid overload. COMPARISON: 11/24/17. FINDINGS: There are prominent progressive opacity changes in the left lower lobe retrocardiac region. Minimal c ardiomegaly. In addition, there is a new patchy alveolar parenchymal process in the right upper lobe, concerning for developing pneumonia. There is some soft tissue fullness in the upper right paratrach eal region with some minimal shift of trachea to the left. IMPRESSION: Worsening confluent parenchymal change in the left lower lobe retrocardiac region. Developing patchy parenchymal changes in the right upper lobe, evidence for developing and/or worsening pneumonia. Stab le left costophrenic angle blunting. Continue short-term follow-up. CODE T. POS: VIDAL
--- NOTE | 2017-11-25 09:43 | PDOC.PN ---
- Subjective Encounter Start Date: 11/25/17 Encounter Start Time: 09:00 -: non-verbal - Objective Resuscitation Status: Resuscitation Status DNR:Do Not Resuscitate MAR Reviewed: Yes Vital Signs & Weight: Vital Signs (12 hours) Temp Pulse Resp Pulse Ox 11/25/17 07:44 100.0 F H 114 H 44 H 90 L 11/25/17 06:22 109 H 11/25/17 05:00 100.6 F H 11/25/17 04:20 100.6 F H 120 H 48 H 92 L 11/25/17 02:35 130 H 11/25/17 01:27 119 H 11/25/17 01:05 102.3 F H 125 H 57 H 100 Weight Admit Weight 158 lb 4.8 oz Weight 158 lb 4.8 oz Most Recent Monitor Data Heart Rate from ECG 106 NIBP 84/47 NIBP BP-Mean 57 Respiration from ECG 35 SpO2 94 I&O: 11/24/17 11/25/17 11/26/17 06:59 06:59 06:59 Intake Total 3000 1000 Output Total 0 Balance 3000 1000 Result Diagrams: 11/25/17 06:51 11/25/17 02:02 Radiology Reviewed by me: Yes Phys Exam - Physical Examination non responsive HEENT: moist MMs venti-mask rhonchi sinus tachy Gastrointestinal: no distention Musculoskeletal: pulses present mx contractures Deviation from normal: unresponsive Dx/Plan (1) NSTEMI (non-ST elevated myocardial infarction) Code(s): I21.4 - NON-ST ELEVATION (NSTEMI) MYOCARDIAL INFARCTION Status: Acute (2) Sepsis with acute organ dysfunction Code(s): A41.9 - SEPSIS, UNSPECIFIED ORGANISM; R65.20 - SEVERE SEPSIS WITHOUT SEPTIC SHOCK Status: Acute (3) H/O: CVA (cerebrovascular accident) Code(s): Z86.73 - PRSNL HX OF TIA (TIA), AND CEREB INFRC W/O RESID DEFICITS Status: Chronic (4) Dehydration Code(s): E86.0 - DEHYDRATION Status: Acute - Plan cont current plan of care, plan discussed w/ family, continue antibiotics note from cards and pulmonary appreciated, continue current regiman * .
--- NOTE | 2017-11-25 09:46 | CON ---
DATE OF CONSULTATION: 11/25/2017 REASON FOR CONSULTATION: Sepsis. HISTORY OF PRESENT ILLNESS: A 62-year-old who has a history of hypertension, type 2 diabetes, obstructive uropathy with suprapubic catheter, previous CVA with severe neurological impairment, hemiplegia left side with contractures, [facility] resident who was admitted in August with sepsis. The patient had diagnosis of possible aspiration pneumonia as well as possible invasive UTI. The cultures revealed Proteus mirabilis, Klebsiella, Enterobacter and Enterococcus. The organisms were not susceptibility tested, blood cultures were negative. Influenza test was negative. The patient at that time had a chest x-ray which demonstrated cardiomegaly, possible perihilar edema. The [facility] because of tachypnea, labored breathing, and hypoxemia. Patient has been admitted to the ICU with a CPAP mask and O2 sats at 94%. He is obtunded, does not interact with examiner. PAST MEDICAL HISTORY: Prior CVA, hypertension, type 2 diabetes, obstructive uropathy with suprapubic catheter, recent episode of sepsis, treated as aspiration pneumonia versus urinary tract infection. PAST SURGICAL HISTORY: Gastrostomy tube placement and suprapubic catheter placement. FAMILY HISTORY: Noncontributory. SOCIAL HISTORY: Limited to the fact that he is a [facility] resident. I do not have detailed social history. ALLERGIES: TETRACYCLINE with unknown adverse reaction. CURRENT MEDICATIONS: Tylenol, Coreg, dextrose, Lovenox, glucagon, heparin, levofloxacin, Levophed, Zosyn, and vancomycin. PHYSICAL EXAMINATION: VITAL SIGNS: Patient's BP is 80/70 on Levophed. T-max 102.3, pulse 104, O2 sat 92% with BiPAP mask stage I presacral ulceration. Few areas of shallow ulcers in the lower extremities. Peripheral IV access. Gastrostomy tube exit site appears normal. He does not have a suprapubic catheter anymore. At this time, he is just a Huffman catheter. Patient has a right gaze preference. No nystagmus. HEENT: Conjunctivae are white. Pupils are reactive. The patient has a dry oral mucosa. NECK: Stiff neck to all directions. LUNGS: With coarse breath sounds, obvious aspiration and inability to manage airway secretions. HEART: S1 and S2 with tachycardia. Soft aortic murmur. ABDOMEN: Soft, not distended, no bladder distention. MUSCULOSKELETAL: Severe contractures to left upper extremities and left lower extremities. Pulses are diminished in dorsalis pedis. Cap refill less than 4 seconds. NEUROLOGIC: He is awake, but does not interact with examiner, does not follow commands. LABORATORY DATA AND IMAGING DATA: White cell count 27,000 down to 10,000, hemoglobin at 14 at this time, MCV 104, platelets 206 and 115,000. Bands 13%. INR 1.2. PH 7.5 and 7.43, pCO2 26 and 79, sodium 145, creatinine 1.22. Liver profile normal. Albumin 3.3. Urinalysis with 21-50 wbc's. Chest x-ray showed cardiomegaly and no obvious infiltrates. The patient had an abdomen and pelvis CT from 10/22/2017 on prior admission which showed mild dilatation in right upper renal collecting system, but no distention. Nonobstructing right renal calculi, cholelithiasis, but no gallbladder distention. Small bilateral pleural effusions, minimal pericardial fluid. ASSESSMENT: 1. Cerebrovascular accident with severe neurological impairment. 2. Respiratory insufficiency with hypoxemia, labored breathing and obvious evidence of aspiration. 3. Hypotension with sepsis likely septic shock. DISCUSSION: The patient has been started on broad spectrum coverage. He has DNR status. The most likely scenario is aspiration pneumonia. Thromboembolism with pulmonary embolism is also a possibility as well as an invasive urinary tract infection. He could have a combination of the above. The risk for poor outcome as high, I believe that aggressive interventions would be futile in his situation and continue conservative management. He may be a good candidate for hospice care/palliative care. TATIANNA
[2017-11-25] MEDS: Acetaminophen 650 MG Suppository PR PRN ×2 (12:35→17:30)
[2017-11-25] MEDS ORDERED: Vancomycin HCl 1.25 GM in Sodium Chloride 0.9% 250 ML 250 ML IVPB SCH (13:00)
[2017-11-25 14:20] LABS: Base Excess-Venous -0.8 mmol/L (0 (+/- 2.5)); Bicarbonate (HCO3v) 22.2 mmol/L (1.0-85.0); CO2 Tension (PvCO2) 32.1 mmHg (41.0-51.0); Calcium, Ionized 0.85 mmol/L (1.12-1.32); Hemoglobin - Calc 18.2 g/dL (12.0-18.0); O2 Tension (PvO2) 55.6 mmHg (35.0-45.0); T. Carbon Dioxide 23.2 mmol/L (1.0-85.0); pH (Venous) 7.447 (7.35-7.45); vO2 Saturation-calc 90.2 % (94-98)
--- NOTE | 2017-11-25 14:49 | PQF ---
CLINICAL DOCUMENTATION IMPROVEMENT CLARIFICATION FORM: ICD-10 Updated PLEASE DO AN ADDENDUM TO THE PROGRESS NOTE WITH ANY DOCUMENTATION UPDATES OR ADDITIONS AND CARRY THROUGH TO DC SUMMARY. THANK YOU. Date: 11/25/17 ATTN: DR. GUILLORY Please exercise your independent, professional judgment in responding to the clarification form. Clinical indicators are provided on the bottom of this form for your review Please check appropriate box(s): [x ] Protein Calorie Malnutrition: [ ] Mild [x ] Moderate [ ] Severe [ ] Other Malnutrition (please specify) __ [ ] Underweight without malnutrition [ ] Cachexia [ ] Other diagnosis [ ] Unable to determine In addition, please specify: Present on Admission (POA): [x ] Yes [ ] No [ ] Unable to determine CLINICAL INDICATORS - SIGNS / SYMPTOMS / LABS H&P: "MUSCLE WASTING AND ATROPHY" DIETARY NOTE: "MUSCLE WASTING NOTED TO TEMPLES AND LOWER EXTREMITIES" "KCAL, G PROTEIN, FLUIDS NOT MET" BMI 22 RISKS: H/O CVA POOR WOUND HEALING DYSPHAGIA TREATMENT: DIETARY CONSULT PEG TUBE WITH TUBE FEEDS Moderate Malnutrition (in acute illness) Energy Intake: <75% of estimated energy requirement for > 7 days Weight Loss: 1-2%/1 week; 5%/ 1 month; 7.5%/3 months Other: mild body fat loss; mild muscle mass loss; mild fluid accumulation; Severe Malnutrition (in acute illness) Energy Intake: < 50% of estimated energy requirement for > 5 days Weight Loss: >1-2%/1 week; >5%/1 month; >7.5%/3 months Other: moderate body fat loss; moderate muscle mass loss; moderate- severe fluid accumulation; measurably reduced bung driver strength Moderate Malnutrition (in chronic illness) [employer] Registered Public Health Nurse [employer] Winform ViewerEnergy Intake: <75% of estimated energy requirement for >1 month Weight Loss: 5%/1 month; 7.5%/3 months; 10%/6 months; 20%/1 year Other: mild body fat loss; mild muscle mass loss; mild fluid accumulation Severe Malnutrition (in chronic illness) Energy Intake: <75% of estimated energy requirement for >1 month Weight Loss: >5%/1 month; >7.5%/3 months; >10%/6 months; >20%/1 year Other: severe body fat loss; severe muscle mass loss; severe fluid accumulation ; measurably reduced bung driver strength (This form is maintained as a part of the permanent medical record) 2014 [employer]. All Rights Reserved [email or web address] Office: [phone] [facility]
--- NOTE | 2017-11-25 14:59 | CON ---
DATE OF CONSULTATION: 11/25/2017 REASON FOR CONSULTATION: Elevated troponins. HISTORY OF PRESENT ILLNESS: Mr. Manzano is a 62-year-old white gentleman, who comes to the hospital f or labored breathing and tachypnea. He has a history of previous CVA with severe neurological impair ment, hemiplegia on the left side and contractures. He lives at a local [facility]. He was admitt ed recently in August for sepsis. At that time, he was found to have UTI and aspiration pneumonia. He comes in this time for having difficulty breathing and hypoxic. He had initial EKG that showed possible ST changes suggestive of ischemia; however, his scenario was more of a septic-type picture. He was admitted and initiated on protocols for treatment of aspiration pneumonia, as he had a fever and had an elevated white count. He then had troponins drawn. They were elevated. So, Cardiology h as been consulted for this. Currently, he is nonverbal as he usually is and is unable to provide any history. PAST MEDICAL HISTORY: 1. Prior CVA as above. 2. Hypertension. 3. Type 2 diabetes. 4. Obstructive uropathy with suprapubic catheter. 5. Septic in the past. 6. Aspiration pneumonia in the past. PAST SURGICAL HISTORY: 1. Gastrostomy tube placement. 2. Suprapubic catheter placement. FAMILY HISTORY: Noncontributory. SOCIAL HISTORY: Unknown. Currently, he is nonverbal. ALLERGIES: TETRACYCLINE. OUTPATIENT MEDICATIONS: Include: 1. Insulin. 2. Vitamin D3. 3. Venlafaxine. 4. Florastor. 5. Artificial tear drops. 6. Potassium chloride 40 mEq daily. 7. MiraLax. 8. Protonix. 9. Oxcarbazepine 150 mg b.i.d. 10. Lisinopril 10 mg a day. 11. Lantus 20 units at bedtime. 12. Glucagon. 13. Folic acid. 14. Miconazole nitrate powder. 15. Docusate b.i.d. 16. Vitamin B12. 17. Coreg 6.25 mg b.i.d. 18. Dulcolax. 19. Acetaminophen. REVIEW OF SYSTEMS: Unobtainable, as the patient is nonverbal. PHYSICAL EXAMINATION: VITAL SIGNS: Temperature 102.3, pulse 110, respiratory rate 37, satting 95% on 50% FiO2 nonrebreathe r, blood pressure 72/42. GENERAL: Nonverbal, contractures, labored breathing with rhonchi. HEENT: Normocephalic. NECK: JVD at about 14 cm of water. LUNGS: Have coarse breath sounds with inability to manage any secretion whatsoever. Aspiration has been unsuccessful as well. CARDIOVASCULAR: S1 and S2. Heart rate in the 110s. Unable to hear any murmurs or any significant d iscernment of heart sounds, given the referred sounds from coarse breathing. ABDOMEN: Soft. Positive bowel sounds. EXTREMITIES: No edema. SKIN: Cold, but dry. LABORATORY WORK: Reviewed. CBC, CMP, troponins were reviewed up to 5.9 now. Lactic acid was 3.6. BNP was 2600. Chest x-ray was reviewed. ASSESSMENT AND PLAN: 1. Non-ST elevation myocardial infarction: Most likely demand ischemia from sepsis and septic shock . 2. Aspiration pneumonia, most likely. 3. Indwelling Huffman catheter. 4. Suspected underlying cardiomyopathy. 5. Suspected acute on chronic systolic heart failure. PLAN: 1. Echocardiogram to assess LV function and valvular structures. 2. Conservative therapy for now. Most likely, his condition is related to aspiration pneumonia and infectious process. He is severely ill and would not be unexpected. At this point, family has decided to make him DNR/DNI. I would think this is going to be his demise. He is on Levophed alrea dy for blood pressure. However, family does not want to be too aggressive with his care. At this po int, echocardiogram to be done. 4. We will follow.
--- NOTE | 2017-11-25 15:09 | PQF ---
CLINICAL DOCUMENTATION IMPROVEMENT CLARIFICATION FORM: ICD-10 Updated PLEASE DO AN ADDENDUM TO THE PROGRESS NOTE WITH ANY DOCUMENTATION UPDATES OR ADDITIONS AND CARRY THROUGH TO DC SUMMARY. THANK YOU. DATE: 11/25/17 ATTN: DR. GUILLORY Please exercise your independent, professional judgment in responding to the clarification form. Clinical indicators are provided on the bottom of this form for your review Please check appropriate box(es): [ ] Sepsis due to: [ ] UTI DUE TO REED CATHETER [ ] D/T UTI NOT RELATED TO REED CATHETER [ ] D/T POSSIBLE ASPIRATION PNEUMONIA [ x ] Severe sepsis with acute organ dysfunction of: encephalopathy (Examples: respiratory failure, encephalopathy, acute kidney failure, other) [x ] Septic Shock [ ] Localized infection without sepsis [ ] Other diagnosis [ ] Unable to determine In addition, please specify: Present on Admission (POA): [ x ] Yes [ ] No [ ] Unable to determine For continuity of documentation, please document condition throughout progress notes and discharge summary. Thank You. CLINICAL INDICATORS - SIGNS / SYMPTOMS / LABS DX: SEPSIS PULSE 130 RR 52 RECTAL TEMP 103.8 WBC 27.6 RISKS: POSSIBLE ASPIRATION PNEUMONIA (PER CONSULTATION REPORT 11/25) SUPRAPUBIC CATHETER TREATMENT: CRITICAL CARE MONITORING IV VANCOMYCIN (ER-PRESENT) IV ZOSYN (ER-PRESENT) IV LEVAQUIN [employer] Roller Operator [employer] Winform Viewer (This form is maintained as a part of the permanent medical record) 2014 [employer]. All Rights Reserved [email or web address] Office: [phone] [facility]
--- NOTE | 2017-11-25 15:22 | PQF ---
CLINICAL DOCUMENTATION IMPROVEMENT CLARIFICATION FORM: ICD-10 Updated PLEASE DO AN ADDENDUM TO THE PROGRESS NOTE WITH ANY DOCUMENTATION UPDATES OR ADDITIONS AND CARRY THROUGH TO DC SUMMARY. THANK YOU. DATE: 11/25/17 ATTN: DR. GUILLORY Please exercise your independent, professional judgment in responding to the clarification form. Clinical indicators are provided on the bottom of this form for your review Please check appropriate box(s) to clarify if the following diagnosis has been ruled in or ruled out: ASPIRATION PNEUMONIA [ ] Ruled in diagnosis [ ] Continue to treat [ ] Resolved [ ] Ruled out diagnosis [ x ] Cannot rule out diagnosis [ ] Other diagnosis [ ] Unable to determine In addition, please specify: Present on Admission (POA): [x ] Yes [ ] No [ ] Unable to determine For continuity of documentation, please document condition throughout progress notes and discharge summary. Thank You. CLINICAL INDICATORS - SIGNS / SYMPTOMS / LABS ID NOTE 11/25: "THE MOST LIKELY SCENARIO IS ASPIRATION PNEUMONIA" RISKS: DYSPHAGIA APHASIA PEG TUBE TREATMENT: DIETARY CONSULT PULMONARY CONSULT IV VANCOMYCIN (ER-PRESENT) IV ZOSYN (ER-PRESENT) IV LEVAQUIN (ER-PRESENT) BIPAP (This form is maintained as a part of the permanent medical record) [employer] Worker [employer] Winform Viewer 2015 [employer]. All Rights Reserved [email or web address] Office: [phone] [facility]
[2017-11-25 21:13] VITALS: TEMP 100.5
[2017-11-26] MEDS ORDERED: FLU VACC QS2017-18 36 mo. & older 0.5 ML SYRINGE IM ONE (09:00)
--- NOTE | 2017-11-26 18:55 | DIS ---
DATE OF ADMISSION: 11/25/2017 DATE OF : 11/25/2017 at 11:59 p.m. PRIMARY DISCHARGE DIAGNOSIS: Respiratory failure. HOSPITAL COURSE: The patient was admitted with a preliminary diagnosis of sepsis secondary to possib le pneumonic infection. Patient required vasopressors to maintain adequate blood pressure. Family d ecided the patient should be DNR and nature should take its course. Vasopressors were discontinued. The patient became hypotensive and at approximately 11:59 p.m. on 11/25/2017. Family member s that were present Carson Daigle, the patient's brother. ATTENDING PHYSICIAN: Dr. David Garay.
--- NOTE | 2017-11-28 14:23 | EKG ---
Test Reason : SHORTNESS OF BREATH Blood Pressure : / mmHG Vent. Rate : 133 BPM Atrial Rate : 133 BPM P-R Int : 142 ms QRS Dur : 100 ms QT Int : 282 ms P-R-T Axes : 088 -50 108 degrees QTc Int : 419 ms Sinus tachycardia Left axis deviation Minimal voltage criteria for LVH, may be normal variant Inferior infarct , possibly acute Anteroseptal infarct , age undetermined T wave abnormality, consider lateral ischemia * ACUTE CT * Consider right ventricular involvement in acute inferior infarct Abnormal ECG Confirmed by BOB LAWTON M.D. ([id number]), primer expeditor and drier JOSE MARTIN CAI ([id number]) on 11/28/2017 2:21:58 PM Referred By: Confirmed By:BOB LAWTON M.D.
--- NOTE | 2017-12-01 20:02 | EKG ---
Test Reason : Blood Pressure : / mmHG Vent. Rate : 116 BPM Atrial Rate : 116 BPM P-R Int : 154 ms QRS Dur : 090 ms QT Int : 330 ms P-R-T Axes : 039 -32 117 degrees QTc Int : 458 ms Sinus tachycardia Left axis deviation Inferior infarct , age undetermined Anterior infarct , age undetermined Abnormal ECG No previous ECGs available Confirmed by KARLENE BEAULIEU ([id number]) on 12/01/2017 8:02:38 PM Referred By: CARRILLO Confirmed By:KARLENE BEAULIEU
== END 2017-11-25 23:59 | disposition expired | DRG 871 ==
LOC: ERS 22:20 → IMCU/EMU 11-25 00:56 → CCU 11-25 04:00
PROVIDERS: ADMIT Internal Medicine; ATTEND Internal Medicine
PROC: 3E033XZ Introduction of Vasopressor into Peripheral Vein, Percutaneous Approach (ICD-10-PCS; principal; 2017-11-25)
DX: A41.9 Sepsis, unspecified organism (principal); J96.01 Acute respiratory failure with hypoxia; I21.4 Non-ST elevation (NSTEMI) myocardial infarction; J69.0 Pneumonitis due to inhalation of food and vomit; R65.21 Severe sepsis with septic shock; R13.12 Dysphagia, oropharyngeal phase; E87.2 Acidosis; I69.354 Hemiplegia and hemiparesis following cerebral infarction affecting left non-dominant side; E44.0 Moderate protein-calorie malnutrition; E87.5 Hyperkalemia; E11.9 Type 2 diabetes mellitus without complications; B96.20 Unspecified Escherichia coli [E. coli] as the cause of diseases classified elsewhere; D50.0 Iron deficiency anemia secondary to blood loss (chronic); I69.320 Aphasia following cerebral infarction; I69.318 Other symptoms and signs involving cognitive functions following cerebral infarction; I10 Essential (primary) hypertension; M24.50 Contracture, unspecified joint; Z79.4 Long term (current) use of insulin; B96.1 Klebsiella pneumoniae [K. pneumoniae] as the cause of diseases classified elsewhere; B96.4 Proteus (mirabilis) (morganii) as the cause of diseases classified elsewhere; B95.2 Enterococcus as the cause of diseases classified elsewhere; B96.89 Other specified bacterial agents as the cause of diseases classified elsewhere; N13.9 Obstructive and reflux uropathy, unspecified; Z93.1 Gastrostomy status; E86.0 Dehydration; Z68.22 Body mass index [BMI] 22.0-22.9, adult; Z66 Do not resuscitate; Z51.5 Encounter for palliative care
CPT/HCPCS: 36415; 36416; 71045; 80053; 81003; 81015; 82330; 82553; 82803; 82805; 83036; 83605; 83735; 83880; 84443; 84484; 85025; 85379; 85610; 85730; 87040; 87077; 87086; 87149; 87186; 87804; 93005; 93010; 93306; 94640; 94660; 96361; 96365; 96375; A4216; J1644; J1650; J1956; J2543; J3370; J7050; J7620